=== PATIENT | female | born 1975 | race African-American/Black ===

== ENCOUNTER 2017-02-28 08:55 | Inpatient (IN) | payer MEDICARE, OTHER ==
[~2017-02-28] VITALS: Ht 160 cm; Wt 67.0 kg
[~2017-02-28 08:55] MED LIST: DILT60TA30 PO; ENAL10TA PO; HYDR-3343 PO; METO25TA35 PO
[2017-02-28] MEDS ORDERED: SODIUM CHLORIDE FLUSH 10ML SYR IVF ONE (09:00)
[2017-02-28] MEDS ORDERED: HYDROmorphone 2 MG/ML, 1ML IVPush ONE ×2 (09:00→12:00)
[2017-02-28] MEDS ORDERED: HYDROmorphone 1 MG/ML, 1ML ONE (09:12)
[2017-02-28] MEDS ORDERED: ONDANSETRON 2MG/ML, 2ML ONE (09:12)
[2017-02-28] MEDS ORDERED: ONDANSETRON 2MG/ML, 2ML IVPush ONE (09:30)
[2017-02-28 09:37] LABS: HEMATOCRIT 34.6 % (34.6-47.8); HEMOGLOBIN 11.9 g/dL (11.7-16.4); WHITE BLOOD COUNT 7.8 x10^3/uL (3.4-10)
[2017-02-28 09:47] LABS: ASPARTATE AMINO TRANSFERASE 12 U/L (15-37); BLOOD UREA NITROGEN 27 mg/dL (7-18)
[2017-02-28] MEDS ORDERED: SEVE800T8 PO (09:48)
[2017-02-28] MEDS ORDERED: DILT90CA PO (09:48)
[2017-02-28] MEDS ORDERED: TRAZ100T15 PO (09:49)
[2017-02-28] MEDS ORDERED: METO50TA82 PO (09:49)
[2017-02-28] MEDS ORDERED: DOXE10CA PO (09:49)
[2017-02-28 09:52] LABS: IS PT STATUS REG ER OR PRE ER? YES
[2017-02-28] MEDS ORDERED: HYDROmorphone 2 MG/ML, 1ML ONE (11:39)
[2017-02-28] MEDS: SODIUM CHLORIDE 0.9% 1,000 ML IV SCH ×2 (13:18→23:18)
[2017-02-28] MEDS ORDERED: hydrALAzine 20 MG/ML, 1ML IVPush PRN (13:30)
[2017-02-28] MEDS: morphine SULFATE 10 MG/ML, 1ML IVPush PRN ×2 (14:55→21:39)
[2017-02-28 15:07] VITALS: BP 105/70
[2017-02-28 15:50] VITALS: BP 100/65
[2017-02-28] MEDS: SEVELAMER 800MG TABLET PO SCH (16:00)
[2017-02-28 19:23] VITALS: BP 96/60
[2017-02-28] MEDS: DOXEPIN 10 MG CAPSULE PO SCH (21:00)
[2017-02-28] MEDS: METOPROLOL TARTRATE 50 MG TABLET PO SCH (21:00)
[2017-02-28] MEDS: TRAZODONE 100MG TABLET PO SCH (21:00)
[2017-03-01 01:57] VITALS: BP 127/80
[2017-03-01] MEDS: morphine SULFATE 10 MG/ML, 1ML IVPush PRN ×3 (03:10→13:54)
[2017-03-01 05:14] LABS: BLOOD UREA NITROGEN 37 mg/dL (7-18)
[2017-03-01 05:17] LABS: ASPARTATE AMINO TRANSFERASE 12 U/L (15-37)
[2017-03-01] MEDS: SEVELAMER 800MG TABLET PO SCH ×3 (07:00→16:00)
[2017-03-01 08:01] VITALS: BP 133/84
[2017-03-01] MEDS: ONDANSETRON 2MG/ML, 2ML IVPush PRN (08:30)
[2017-03-01] MEDS: METOPROLOL TARTRATE 50 MG TABLET PO SCH ×2 (13:00→20:47)
[2017-03-01 13:13] VITALS: BP 132/81
[2017-03-01] MEDS: DILTIAZEM 90 MG CAP.ER.12H PO SCH (13:54)
[2017-03-01] MEDS: SODIUM CHLORIDE 0.9% 1,000 ML IV SCH (13:56)
[2017-03-01] MEDS ORDERED: KETOROLAC 30 MG/1 ML IVPush PRN (16:30)
[2017-03-01] MEDS: PARICALCITOL 2 MCG/ML, 1ML IVPush SCH (16:55)
[2017-03-01] MEDS ORDERED: HYDROmorphone 1 MG/ML, 1ML IV PRN (17:00)
[2017-03-01] MEDS: HYDROmorphone 1 MG/ML, 1ML IV PRN ×2 (17:18→17:35)
[2017-03-01 19:56] VITALS: BP 139/88
[2017-03-01] MEDS: TRAZODONE 100MG TABLET PO SCH (20:47)
[2017-03-01] MEDS: DIPHENHYDRAMINE 25 MG CAPSULE PO PRN (20:48)
[2017-03-01] MEDS: DOXEPIN 10 MG CAPSULE PO SCH (20:48)
[2017-03-01] MEDS: MORPHINE SULFATE 4 MG/ML, 1ML IVPush PRN (20:59)
[2017-03-02] MEDS: SODIUM CHLORIDE 0.9% 1,000 ML IV SCH ×3 (01:18→22:01)
[2017-03-02 01:56] VITALS: BP 110/72
[2017-03-02] MEDS: MORPHINE SULFATE 4 MG/ML, 1ML IVPush PRN ×4 (02:11→22:01)
[2017-03-02] MEDS: SEVELAMER 800MG TABLET PO SCH ×3 (07:00→15:21)
[2017-03-02 08:00] VITALS: BP 126/82
[2017-03-02] MEDS: ONDANSETRON 2MG/ML, 2ML IVPush PRN (09:22)
[2017-03-02] MEDS: METOPROLOL TARTRATE 50 MG TABLET PO SCH ×2 (09:29→22:00)
[2017-03-02] MEDS: DILTIAZEM 90 MG CAP.ER.12H PO SCH (09:30)
[2017-03-02 14:41] VITALS: BP 129/85
[2017-03-02] MEDS: DIPHENHYDRAMINE 25 MG CAPSULE PO PRN (15:15)
[2017-03-02 21:57] VITALS: BP 152/88
[2017-03-02] MEDS: DOXEPIN 10 MG CAPSULE PO SCH (22:00)
[2017-03-02] MEDS: TRAZODONE 100MG TABLET PO SCH (22:00)
[2017-03-03 02:26] VITALS: BP 137/91
[2017-03-03] MEDS: MORPHINE SULFATE 4 MG/ML, 1ML IVPush PRN ×5 (02:29→20:05)
[2017-03-03] MEDS: ONDANSETRON 2MG/ML, 2ML IVPush PRN ×4 (06:20→20:47)
[2017-03-03 06:55] VITALS: BP 145/89
[2017-03-03] MEDS: SEVELAMER 800MG TABLET PO SCH ×3 (07:00→16:00)
[2017-03-03] MEDS: METOPROLOL TARTRATE 50 MG TABLET PO SCH (09:00)
[2017-03-03] MEDS: DILTIAZEM 90 MG CAP.ER.12H PO SCH (09:00)
[2017-03-03 09:47] LABS: HEMATOCRIT 30.9 % (34.6-47.8); HEMOGLOBIN 10.4 g/dL (11.7-16.4); WHITE BLOOD COUNT 6.4 x10^3/uL (3.4-10)
[2017-03-03 10:01] LABS: BLOOD UREA NITROGEN 28 mg/dL (7-18)
[2017-03-03 12:40] VITALS: BP 151/86
[2017-03-03] MEDS: hydrALAzine 20 MG/ML, 1ML IVPush SCH ×3 (12:51→23:18)
[2017-03-03] MEDS: METOPROLOL 1 MG/ML, 5ML IVPush SCH ×3 (12:52→23:18)
[2017-03-03 19:08] LABS: IS PT STATUS REG ER OR PRE ER? NO
[2017-03-03 19:42] VITALS: BP 165/103
[2017-03-03] MEDS: LORazepam 2 MG/ML, 1ML IVPush PRN (20:05)
[2017-03-03] MEDS: SODIUM CHLORIDE 0.9% 1,000 ML IV SCH (20:48)
[2017-03-03] MEDS: TRAZODONE 100MG TABLET PO SCH (21:00)
[2017-03-03] MEDS: DOXEPIN 10 MG CAPSULE PO SCH (21:00)
[2017-03-03 23:08] VITALS: BP 149/91
[2017-03-04] MEDS: HYDROmorphone 1 MG/ML, 1ML IV PRN (01:14)
[2017-03-04 01:17] VITALS: BP 173/99
[2017-03-04] MEDS: ONDANSETRON 2MG/ML, 2ML IVPush PRN ×3 (01:19→20:20)
[2017-03-04] MEDS: hydrALAzine 20 MG/ML, 1ML IVPush SCH ×4 (05:04→23:21)
[2017-03-04] MEDS: METOPROLOL 1 MG/ML, 5ML IVPush SCH ×3 (05:04→20:20)
[2017-03-04 05:33] LABS: BLOOD UREA NITROGEN 35 mg/dL (7-18)
[2017-03-04 06:32] VITALS: BP 142/74
[2017-03-04] MEDS: SEVELAMER 800MG TABLET PO SCH ×3 (07:00→15:14)
[2017-03-04] MEDS: LORazepam 2 MG/ML, 1ML IVPush PRN (08:39)
[2017-03-04] MEDS: SODIUM CHLORIDE 0.9% 1,000 ML IV SCH (13:21)
[2017-03-04 13:28] VITALS: BP 135/85
[2017-03-04] MEDS: PARICALCITOL 2 MCG/ML, 1ML IVPush SCH (15:00)
[2017-03-04] MEDS: MORPHINE SULFATE 4 MG/ML, 1ML IVPush PRN ×2 (15:23→20:44)
[2017-03-04 17:28] VITALS: BP 149/88
[2017-03-04 20:15] VITALS: BP 159/98
[2017-03-04] MEDS: TRAZODONE 100MG TABLET PO SCH (20:22)
[2017-03-04] MEDS: DOXEPIN 10 MG CAPSULE PO SCH (20:22)
[2017-03-04 23:18] VITALS: BP 144/84
[2017-03-05] MEDS: MORPHINE SULFATE 4 MG/ML, 1ML IVPush PRN ×3 (00:49→17:40)
[2017-03-05 00:51] VITALS: BP 129/80
[2017-03-05] MEDS: METOPROLOL 1 MG/ML, 5ML IVPush SCH ×5 (00:52→20:23)
[2017-03-05] MEDS: SODIUM CHLORIDE 0.9% 1,000 ML IV SCH ×2 (00:52→14:08)
[2017-03-05] MEDS: ONDANSETRON 2MG/ML, 2ML IVPush PRN ×3 (00:56→20:36)
[2017-03-05] MEDS: LORazepam 2 MG/ML, 1ML IVPush PRN ×3 (01:23→20:36)
[2017-03-05 05:27] VITALS: BP 157/93
[2017-03-05] MEDS: hydrALAzine 20 MG/ML, 1ML IVPush SCH ×4 (05:27→22:24)
[2017-03-05 06:25] VITALS: BP 151/85
[2017-03-05] MEDS: SEVELAMER 800MG TABLET PO SCH ×3 (07:00→16:00)
[2017-03-05 07:49] LABS: BLOOD UREA NITROGEN 22 mg/dL (7-18)
[2017-03-05] MEDS: PANCRELIPASE 24,000 CAPSULE.DR PO SCH ×3 (08:00→17:00)
[2017-03-05 12:37] VITALS: BP 158/100
[2017-03-05 20:06] LABS: BLOOD UREA NITROGEN 27 mg/dL (7-18)
[2017-03-05 20:10] VITALS: BP 165/92
[2017-03-05] MEDS: TRAZODONE 100MG TABLET PO SCH (20:24)
[2017-03-05] MEDS: DOXEPIN 10 MG CAPSULE PO SCH (20:24)
[2017-03-05 22:38] VITALS: BP 152/94
[2017-03-05] MEDS ORDERED: OMNIPAQUE 350 MG/ML, 100ML BOTTLE ONE (23:53)
[2017-03-06] MEDS: METOPROLOL 1 MG/ML, 5ML IVPush SCH ×4 (01:21→21:23)
[2017-03-06] MEDS: ONDANSETRON 2MG/ML, 2ML IVPush PRN ×3 (01:21→21:23)
[2017-03-06 01:30] VITALS: BP 177/107
[2017-03-06 02:00] VITALS: BP 138/80
[2017-03-06] MEDS ORDERED: hydrALAzine 20 MG/ML, 1ML IV ONE (03:00)
[2017-03-06] MEDS: SODIUM CHLORIDE 0.9% 1,000 ML IV SCH ×3 (03:41→23:21)
[2017-03-06] MEDS: hydrALAzine 20 MG/ML, 1ML IVPush SCH ×4 (04:56→23:24)
[2017-03-06 07:12] VITALS: BP 168/95
[2017-03-06] MEDS: SEVELAMER 800MG TABLET PO SCH ×3 (08:15→16:51)
[2017-03-06] MEDS: PANCRELIPASE 24,000 CAPSULE.DR PO SCH ×3 (08:15→17:58)
[2017-03-06] MEDS: MORPHINE SULFATE 4 MG/ML, 1ML IVPush PRN (08:24)
[2017-03-06 12:14] VITALS: BP 162/97
[2017-03-06] MEDS: ACETAMINOPHEN 325 MG TABLET PO PRN (12:45)
[2017-03-06] MEDS: PARICALCITOL 2 MCG/ML, 1ML IVPush SCH (16:51)
[2017-03-06 21:01] VITALS: BP 154/109
[2017-03-06] MEDS: DOXEPIN 10 MG CAPSULE PO SCH (21:22)
[2017-03-06] MEDS: TRAZODONE 100MG TABLET PO SCH (21:22)
[2017-03-06] MEDS: LORazepam 2 MG/ML, 1ML IVPush PRN (21:23)
[2017-03-06 23:20] VITALS: BP 155/96
[2017-03-07] MEDS: METOPROLOL 1 MG/ML, 5ML IVPush SCH ×3 (01:51→13:30)
[2017-03-07 01:52] VITALS: BP 141/86
[2017-03-07 05:19] VITALS: BP 148/88
[2017-03-07] MEDS: hydrALAzine 20 MG/ML, 1ML IVPush SCH ×2 (05:19→11:00)
[2017-03-07] MEDS: SEVELAMER 800MG TABLET PO SCH ×5 (05:48→16:00)
[2017-03-07] MEDS: ACETAMINOPHEN 325 MG TABLET PO PRN (05:48)
[2017-03-07 08:00] VITALS: BP 166/102
[2017-03-07] MEDS: PANCRELIPASE 24,000 CAPSULE.DR PO SCH ×3 (08:14→17:00)
[2017-03-07] MEDS: MORPHINE SULFATE 4 MG/ML, 1ML IVPush PRN ×2 (08:26→20:15)
[2017-03-07] MEDS: ONDANSETRON 2MG/ML, 2ML IVPush PRN ×2 (08:47→17:37)
[2017-03-07] MEDS: SODIUM CHLORIDE 0.9% 1,000 ML IV SCH (11:44)
[2017-03-07 15:33] VITALS: BP 149/90
[2017-03-07] MEDS: DOXEPIN 10 MG CAPSULE PO SCH (20:14)
[2017-03-07] MEDS: TRAZODONE 100MG TABLET PO SCH (20:14)
[2017-03-07] MEDS: METOPROLOL SUCCINATE 50 MG TAB.ER.24H PO SCH (20:15)
[2017-03-07 21:44] VITALS: BP 149/99
[2017-03-08 02:05] VITALS: BP 146/96
[2017-03-08] MEDS: SODIUM CHLORIDE 0.9% 1,000 ML IV SCH (03:29)
[2017-03-08] MEDS: LORazepam 2 MG/ML, 1ML IVPush PRN ×3 (05:25→23:13)
[2017-03-08] MEDS: ONDANSETRON 2MG/ML, 2ML IVPush PRN ×3 (05:25→23:13)
[2017-03-08] MEDS: MORPHINE SULFATE 4 MG/ML, 1ML IVPush PRN ×3 (05:32→23:13)
[2017-03-08] MEDS: SEVELAMER 800MG TABLET PO SCH ×3 (08:00→17:28)
[2017-03-08] MEDS: PANCRELIPASE 24,000 CAPSULE.DR PO SCH ×3 (08:00→17:27)
[2017-03-08 08:23] VITALS: BP 151/96
[2017-03-08] MEDS: DILTIAZEM 90 MG CAP.ER.12H PO SCH (09:00)
[2017-03-08 16:01] VITALS: BP 142/89
[2017-03-08] MEDS: PARICALCITOL 2 MCG/ML, 1ML IVPush SCH (17:28)
[2017-03-08 20:22] VITALS: BP 146/89
[2017-03-08] MEDS: TRAZODONE 100MG TABLET PO SCH (22:53)
[2017-03-08] MEDS: DOXEPIN 10 MG CAPSULE PO SCH (22:54)
[2017-03-08] MEDS: METOPROLOL SUCCINATE 50 MG TAB.ER.24H PO SCH (22:54)
[2017-03-09 01:33] VITALS: BP 145/89
[2017-03-09] MEDS ORDERED: ACETAMINOPHEN 325 MG TABLET PO PRN (02:00)
[2017-03-09] MEDS ORDERED: HYDROmorphone 1 MG/ML, 1ML IV PRN (02:00)
[2017-03-09] MEDS ORDERED: DIPHENHYDRAMINE 25 MG CAPSULE PO PRN (02:00)
[2017-03-09] MEDS ORDERED: ONDANSETRON 2MG/ML, 2ML IVPush PRN (02:00)
[2017-03-09 07:07] VITALS: BP 152/88
[2017-03-09] MEDS: PANCRELIPASE 24,000 CAPSULE.DR PO SCH (09:09)
[2017-03-09] MEDS: SEVELAMER 800MG TABLET PO SCH (09:09)
[2017-03-09] MEDS: DILTIAZEM 90 MG CAP.ER.12H PO SCH (09:09)
[2017-03-09] MEDS ORDERED: LIPA1CAP61 PO (11:09)
== END 2017-03-09 12:00 | disposition home or self-care (01) | DRG 438 ==
LOC: ED 09:25 → EDIP 10:37 → 4EST 11:59
PROVIDERS: ADMIT Internal Medicine; ATTEND Internal Medicine
PROC: 5A1D60Z (ICD-10-PCS; principal; 2017-03-04)
DX: K85.90 Acute pancreatitis without necrosis or infection, unspecified (principal); N18.6 End stage renal disease; I12.0 Hypertensive chronic kidney disease with stage 5 chronic kidney disease or end stage renal disease; E87.1 Hypo-osmolality and hyponatremia; E83.39 Other disorders of phosphorus metabolism; D63.1 Anemia in chronic kidney disease; E87.6 Hypokalemia; F12.90 Cannabis use, unspecified, uncomplicated; I70.1 Atherosclerosis of renal artery; M10.9 Gout, unspecified; N28.1 Cyst of kidney, acquired; T50.905A Adverse effect of unspecified drugs, medicaments and biological substances, initial encounter; Y92.89 Other specified places as the place of occurrence of the external cause; Z82.49 Family history of ischemic heart disease and other diseases of the circulatory system; Z86.73 Personal history of transient ischemic attack (TIA), and cerebral infarction without residual deficits; Z87.891 Personal history of nicotine dependence; Z99.2 Dependence on renal dialysis; Z91.19 Patient's noncompliance with other medical treatment and regimen
CPT/HCPCS: 36415; 71010; 74176; 74177; 76700; 80048; 80053; 80061; 82330; 83690; 83735; 84100; 84484; 85025; 86704; 86706; 87340; 93005; 96374; 96375; 96376; J1170; J2405; J2501; Q9967; J0360; J2060; J2270; J7030; Q0163

== ENCOUNTER 2017-07-19 07:57 | Emergency (ER) | payer MEDICARE, OTHER ==
[~2017-07-19] VITALS: Ht 162.6 cm; Wt 78.0 kg
[~2017-07-19 07:57] MED LIST changes: +DILT90CA PO; +DOXE10CA PO; +LIPA1CAP61 PO; +METO50TA82 PO; +SEVE800T8 PO; +TRAZ100T15 PO
[2017-07-19] MEDS ORDERED: METOCLOPRAMIDE 5 MG/ML, 2ML ONE (08:17)
[2017-07-19] MEDS ORDERED: MORPHINE SULFATE 4 MG/ML, 1ML ONE ×2 (08:17→09:20)
[2017-07-19] MEDS ORDERED: DIPHENHYDRAMINE 50 MG/ML, 1ML ONE (08:17)
[2017-07-19] MEDS: MORPHINE SULFATE 4 MG/ML, 1ML IVPush PRN ×2 (08:22→09:22)
[2017-07-19] MEDS ORDERED: METOCLOPRAMIDE 5 MG/ML, 2ML IVPush ONE (08:30)
[2017-07-19] MEDS ORDERED: SODIUM CHLORIDE FLUSH 10ML SYR IVF ONE (08:30)
[2017-07-19] MEDS ORDERED: DIPHENHYDRAMINE 50 MG/ML, 1ML IVPush ONE (08:30)
[2017-07-19] MEDS ORDERED: OMNIPAQUE 350 MG/ML, 100ML BOTTLE ONE (08:44)
[2017-07-19 08:52] LABS: BASOPHILS # (AUTO) 0.02 x10^3/uL (0-0.1); BASOPHILS % (AUTO) 0 % (0-1); EOSINOPHILS # (AUTO) 0.11 x10^3/uL (0-0.4); EOSINOPHILS % (AUTO) 2 % (1-7); LYMPHOCYTES # (AUTO) 0.64 x10^3/uL (1-3.4); LYMPHOCYTES % (AUTO) 10 % (22-44); MD NO; MEAN CORPUSCULAR HEMOGLOBIN 31.3 pg (27.0-34.8); MEAN CORPUSCULAR VOLUME 94.9 fL (80-100); MEAN PLATELET VOLUME 7.7 fL (7.4-10.4); MONOCYTES # (AUTO) 0.44 x10^3/uL (0.2-0.8); MONOCYTES % (AUTO) 7 % (2-9); NEUTROPHILS # (AUTO) 5.44 x10^3/uL (1.8-6.8); NEUTROPHILS % (AUTO) 82 % (42-75); PLATELET COUNT 193 x10^3/uL (130-400); RED BLOOD COUNT 4.08 x10^6/uL (3.82-5.3)
[2017-07-19 09:02] LABS: ALANINE AMINOTRANSFERASE 13 U/L (12-78); ALBUMIN 3.4 g/dL (3.4-5.0); ANION GAP 12 mmol/L (5-15); CALCIUM 9.1 mg/dL (8.5-10.1); CHLORIDE 97 mmol/L (98-107); CREATININE 7.86 mg/dL (0.55-1.02)
[2017-07-19 09:07] LABS: ALKALINE PHOSPHATASE 77 U/L (45-117); BILIRUBIN,TOTAL 0.6 mg/dL (0.2-1.0); TOTAL PROTEIN 7.5 g/dL (6.4-8.2)
[2017-07-19 09:30] LABS: MICROSCOPIC INDICATED
[2017-07-19 09:56] LABS: CULTURE INDICATED? NO
[2017-07-19 10:38] VITALS: BP 105/73
== END 2017-07-19 10:44 | disposition home or self-care (01) ==
LOC: ED 09:50
DX: R10.13 Epigastric pain (principal); R11.2 Nausea with vomiting, unspecified; I12.9 Hypertensive chronic kidney disease with stage 1 through stage 4 chronic kidney disease, or unspecified chronic kidney disease; N18.4 Chronic kidney disease, stage 4 (severe); Z99.2 Dependence on renal dialysis
CPT/HCPCS: 36415; 74177; 80053; 81001; 83690; 84703; 85025; 96374; 96375; 96376; 99285; J1200; J2765; Q9967

== ENCOUNTER 2017-08-28 08:07 | Inpatient (IN) | payer MEDICARE, OTHER ==
[~2017-08-28] VITALS: Ht 160 cm; Wt 83.5 kg
[2017-08-28] MEDS ORDERED: PROMETHAZINE 25 MG/ML, 1ML ONE (08:21)
[2017-08-28 08:30] LABS: BASOPHILS # (AUTO) 0.03 x10^3/uL (0-0.1); BASOPHILS % (AUTO) 1 % (0-1); EOSINOPHILS # (AUTO) 0.25 x10^3/uL (0-0.4); EOSINOPHILS % (AUTO) 4 % (1-7); LYMPHOCYTES # (AUTO) 1.04 x10^3/uL (1-3.4); LYMPHOCYTES % (AUTO) 18 % (22-44); MD NO; MEAN CORPUSCULAR HEMOGLOBIN 31.8 pg (27.0-34.8); MEAN CORPUSCULAR HGB CONC 33.8 g/dL (32.4-35.8); MEAN CORPUSCULAR VOLUME 94.2 fL (80-100); MEAN PLATELET VOLUME 7.9 fL (7.4-10.4); MONOCYTES # (AUTO) 0.43 x10^3/uL (0.2-0.8); MONOCYTES % (AUTO) 8 % (2-9); NEUTROPHILS # (AUTO) 3.88 x10^3/uL (1.8-6.8); NEUTROPHILS % (AUTO) 69 % (42-75); PLATELET COUNT 185 x10^3/uL (130-400); RED BLOOD COUNT 3.42 x10^6/uL (3.82-5.3); RED CELL DISTRIBUTION WIDTH 14.2 % (9.6-15.2)
[2017-08-28] MEDS ORDERED: PROMETHAZINE 25 MG/ML, 1ML IM ONE (08:30)
[2017-08-28 08:40] LABS: ALANINE AMINOTRANSFERASE 12 U/L (12-78); ALBUMIN 3.3 g/dL (3.4-5.0); ANION GAP 11 mmol/L (5-15); CALCIUM 8.6 mg/dL (8.5-10.1); CHLORIDE 102 mmol/L (98-107); CREATININE 8.72 mg/dL (0.55-1.02)
[2017-08-28 08:42] LABS: ALKALINE PHOSPHATASE 91 U/L (45-117); BILIRUBIN,TOTAL 0.4 mg/dL (0.2-1.0); TOTAL PROTEIN 7.4 g/dL (6.4-8.2)
[2017-08-28] MEDS: PLEASE ENTER HEIGHT AND WEIGHT MC SCH ×2 (08:49→11:22)
[2017-08-28] MEDS ORDERED: CINA60TA PO (09:25)
[2017-08-28] MEDS ORDERED: DIPHENHYDRAMINE 50 MG/ML, 1ML IVPush ONE (09:30)
[2017-08-28] MEDS ORDERED: PROCHLORPERAZINE 5 MG/ML, 2ML IVPush ONE (09:30)
[2017-08-28] MEDS ORDERED: PROCHLORPERAZINE 5 MG/ML, 2ML ONE (09:35)
[2017-08-28] MEDS ORDERED: DIPHENHYDRAMINE 50 MG/ML, 1ML ONE (09:36)
[2017-08-28 12:50] VITALS: BP 111/73
[2017-08-28] MEDS ORDERED: DOCUSATE 100 MG CAPSULE PO PRN (13:00)
[2017-08-28] MEDS ORDERED: hydrALAzine 20 MG/ML, 1ML IVPush PRN (13:00)
[2017-08-28] MEDS ORDERED: ENALAPRILAT 1.25 MG/ML, 2ML IVPush PRN (13:00)
[2017-08-28] MEDS ORDERED: BISACODYL 10 MG SUPP PR PRN (13:00)
[2017-08-28] MEDS ORDERED: ACETAMINOPHEN 325 MG TABLET PO PRN (13:00)
[2017-08-28] MEDS ORDERED: ONDANSETRON 2MG/ML, 2ML IVPush PRN (13:00)
[2017-08-28] MEDS: HEPARIN 5,000 UNITS/ML, 1ML SQ SCH ×2 (13:00→20:40)
[2017-08-28] MEDS ORDERED: POLYETHYLENE GLYCOL 17 GM PACKET PO PRN (13:00)
[2017-08-28 13:32] LABS: FREE T4 (FREE THYROXINE) 1.16 ng/dL (0.76-1.46); THYROID STIMULATING HORMONE 3.84 mIU/L (0.358-3.740)
[2017-08-28 13:55] LABS: HEMOGLOBIN A1C 4.5 % (4.2-6.3)
[2017-08-28] MEDS ORDERED: LORazepam 2 MG/ML, 1ML IVPush ONE (14:30)
[2017-08-28] MEDS ORDERED: LORazepam 2 MG/ML, 1ML ONE (14:34)
[2017-08-28 15:57] LABS: MICROSCOPIC AUTO
[2017-08-28] MEDS: SEVELAMER CARBONATE 800MG TAB PO SCH (16:00)
[2017-08-28 16:15] LABS: CULTURE INDICATED? NO
[2017-08-28 21:00] VITALS: BP 122/76
[2017-08-28] MEDS ORDERED: CINACALCET 30 MG TABLET PO SCH (21:00)
[2017-08-28] MEDS ORDERED: TRAZODONE 100MG TABLET PO SCH (21:00)
[2017-08-28] MEDS ORDERED: DOXEPIN 10 MG CAPSULE PO SCH (21:00)
[2017-08-29 01:39] VITALS: BP 117/71
[2017-08-29] MEDS: HEPARIN 5,000 UNITS/ML, 1ML SQ SCH (05:00)
[2017-08-29 05:01] LABS: BASOPHILS # (AUTO) 0.05 x10^3/uL (0-0.1); BASOPHILS % (AUTO) 1 % (0-1); EOSINOPHILS # (AUTO) 0.35 x10^3/uL (0-0.4); EOSINOPHILS % (AUTO) 6 % (1-7); LYMPHOCYTES # (AUTO) 1.13 x10^3/uL (1-3.4); LYMPHOCYTES % (AUTO) 20 % (22-44); MD NO; MEAN CORPUSCULAR HEMOGLOBIN 31.7 pg (27.0-34.8); MEAN CORPUSCULAR HGB CONC 33.6 g/dL (32.4-35.8); MEAN CORPUSCULAR VOLUME 94.6 fL (80-100); MEAN PLATELET VOLUME 8.4 fL (7.4-10.4); MONOCYTES # (AUTO) 0.38 x10^3/uL (0.2-0.8); MONOCYTES % (AUTO) 7 % (2-9); NEUTROPHILS # (AUTO) 3.86 x10^3/uL (1.8-6.8); NEUTROPHILS % (AUTO) 67 % (42-75); PLATELET COUNT 180 x10^3/uL (130-400); RED BLOOD COUNT 3.53 x10^6/uL (3.82-5.3); RED CELL DISTRIBUTION WIDTH 14.2 % (9.6-15.2)
[2017-08-29 05:05] LABS: CHLORIDE 105 mmol/L (98-107)
[2017-08-29 05:15] LABS: ALANINE AMINOTRANSFERASE 13 U/L (12-78); ALBUMIN 3.2 g/dL (3.4-5.0); ALKALINE PHOSPHATASE 65 U/L (45-117); ANION GAP 9 mmol/L (5-15); BILIRUBIN,TOTAL 0.7 mg/dL (0.2-1.0); CALCIUM 9.3 mg/dL (8.5-10.1); CREATININE 9.91 mg/dL (0.55-1.02); TOTAL PROTEIN 7.2 g/dL (6.4-8.2)
[2017-08-29] MEDS: SEVELAMER CARBONATE 800MG TAB PO SCH ×2 (07:00→11:00)
[2017-08-29 08:07] VITALS: BP 104/63
[2017-08-29] MEDS ORDERED: DILTIAZEM 90 MG CAP.ER.12H PO SCH (09:00)
== END 2017-08-29 12:30 | disposition home or self-care (01) | DRG 438 ==
LOC: ED 09:15 → EDIP 09:22 → 4EST 10:16 → DCLOUNGE 08-29 12:20
PROVIDERS: ADMIT Internal Medicine; ATTEND Internal Medicine
DX: K85.90 Acute pancreatitis without necrosis or infection, unspecified (principal); N18.6 End stage renal disease; I12.0 Hypertensive chronic kidney disease with stage 5 chronic kidney disease or end stage renal disease; I95.9 Hypotension, unspecified; D63.8 Anemia in other chronic diseases classified elsewhere; F12.90 Cannabis use, unspecified, uncomplicated; F10.10 Alcohol abuse, uncomplicated; K86.1 Other chronic pancreatitis; Z99.2 Dependence on renal dialysis; Z79.899 Other long term (current) drug therapy; Z82.49 Family history of ischemic heart disease and other diseases of the circulatory system; Z86.73 Personal history of transient ischemic attack (TIA), and cerebral infarction without residual deficits; Z91.14 Patient's other noncompliance with medication regimen; Z88.8 Allergy status to other drugs, medicaments and biological substances; Z88.0 Allergy status to penicillin
CPT/HCPCS: 36415; 74181; 80053; 81001; 83036; 83690; 83735; 84439; 84443; 85025; 93005; 96372; 96374; 96375; J2550; J0780; J1200; J2060

== ENCOUNTER 2018-01-25 23:52 | Emergency (ER) | payer OTHER, MEDICARE ==
[~2018-01-25] VITALS: Ht 160 cm; Wt 72.0 kg
[~2018-01-25 23:52] MED LIST changes: +CINA60TA PO; +TRAZ-137 PO; -TRAZ100T15 PO
[2018-01-26] MEDS ORDERED: DIPHENHYDRAMINE 50 MG/ML, 1ML ONE (00:26)
[2018-01-26] MEDS ORDERED: METOCLOPRAMIDE 5 MG/ML, 2ML ONE (00:26)
[2018-01-26] MEDS ORDERED: DIPHENHYDRAMINE 50 MG/ML, 1ML IVPush ONE (00:30)
[2018-01-26] MEDS ORDERED: SODIUM CHLORIDE FLUSH 10ML SYR IVF ONE (00:30)
[2018-01-26] MEDS ORDERED: METOCLOPRAMIDE 5 MG/ML, 2ML IVPush ONE (00:30)
[2018-01-26] MEDS ORDERED: SODIUM CHLORIDE 0.9% 1,000ML IVBOLUS ONE (00:30)
[2018-01-26 00:38] LABS: MEAN CORPUSCULAR HEMOGLOBIN 31.2 pg (27.0-34.8); MEAN CORPUSCULAR HGB CONC 33.5 g/dL (32.4-35.8); MEAN CORPUSCULAR VOLUME 93.1 fL (80-100); MEAN PLATELET VOLUME 8.1 fL (7.4-10.4); PLATELET COUNT 203 x10^3/uL (130-400); RED BLOOD COUNT 3.88 x10^6/uL (3.82-5.3); RED CELL DISTRIBUTION WIDTH 13.8 % (9.6-15.2)
[2018-01-26 00:43] LABS: ALBUMIN 3.8 g/dL (3.4-5.0); ANION GAP 9 mmol/L (5-15); CALCIUM 10.2 mg/dL (8.5-10.1); CHLORIDE 101 mmol/L (98-107); CREATININE 9.81 mg/dL (0.55-1.02)
[2018-01-26 00:54] LABS: MD YES
[2018-01-26 01:01] LABS: <RBC MORPHOLOGY> NORMAL; BASOS#(MANUAL) 0.06 x10^3/uL (0-0.1); BASOS% (MANUAL) 1 % (0-1); EOS% (MANUAL) 5 % (1-7); LYMPH#(MANUAL) 1.92 x10^3/uL (1-3.4); LYMPHS% (MANUAL) 32 % (22-44); MONOS% (MANUAL) 5 % (2-9); SEG#(MANUAL) 3.42 x10^3/uL (1.8-6.8); SEGS% (MANUAL) 57 % (42-75)
[2018-01-26 01:02] LABS: <PLATELET ESTIMATE> ADEQUATE; <PLT MORPHOLOGY> NORMAL PLT MORPH; ALBUMIN 3.7 g/dL (3.4-5.0); BILIRUBIN, DIRECT 0.1 mg/dL (0.1-0.2)
[2018-01-26 01:05] LABS: BILIRUBIN,INDIRECT 0.4 mg/dL (0.0-2.0); BILIRUBIN,TOTAL 0.5 mg/dL (0.2-1.0)
[2018-01-26 02:03] VITALS: BP 153/92
== END 2018-01-26 02:05 | disposition home or self-care (01) ==
LOC: ED 23:59
DX: R42 Dizziness and giddiness (principal); R51 Headache; R11.0 Nausea; N18.6 End stage renal disease; I12.0 Hypertensive chronic kidney disease with stage 5 chronic kidney disease or end stage renal disease; H53.149 Visual discomfort, unspecified; R10.9 Unspecified abdominal pain; M54.9 Dorsalgia, unspecified; G89.29 Other chronic pain; Z99.2 Dependence on renal dialysis
CPT/HCPCS: 36415; 70450; 80048; 80076; 82040; 83690; 85025; 96361; 96374; 96375; 99285; J1200; J2765; J7030

== ENCOUNTER → 2018-03-31 | Outpatient (CLI) | payer MEDICARE, OTHER ==
[~2018-03-31] MED LIST changes: +HYDR-3237 PO; +HYDR-3342 PO; +TRAZ150T62 PO
[2018-03-31 11:42] LABS: BASOPHILS # (AUTO) 0.01 x10^3/uL (0-0.1); BASOPHILS % (AUTO) 0 % (0-1); EOSINOPHILS # (AUTO) 0.22 x10^3/uL (0-0.4); EOSINOPHILS % (AUTO) 4 % (1-7); LYMPHOCYTES # (AUTO) 1.35 x10^3/uL (1-3.4); LYMPHOCYTES % (AUTO) 23 % (22-44); MD NO; MEAN CORPUSCULAR HEMOGLOBIN 30.1 pg (27.0-34.8); MEAN CORPUSCULAR HGB CONC 33.8 g/dL (32.4-35.8); MEAN CORPUSCULAR VOLUME 89.2 fL (80-100); MEAN PLATELET VOLUME 8.6 fL (7.4-10.4); MONOCYTES # (AUTO) 0.33 x10^3/uL (0.2-0.8); MONOCYTES % (AUTO) 6 % (2-9); NEUTROPHILS # (AUTO) 4.03 x10^3/uL (1.8-6.8); NEUTROPHILS % (AUTO) 68 % (42-75); PLATELET COUNT 210 x10^3/uL (130-400); RED BLOOD COUNT 4.39 x10^6/uL (3.82-5.3)
[2018-03-31 11:50] LABS: ALBUMIN 3.8 g/dL (3.4-5.0); ANION GAP 9 mmol/L (5-15); CALCIUM 10.1 mg/dL (8.5-10.1); CHLORIDE 93 mmol/L (98-107)
[2018-03-31 12:03] LABS: ALANINE AMINOTRANSFERASE 16 U/L (12-78); ALKALINE PHOSPHATASE 102 U/L (45-117); BILIRUBIN,TOTAL 0.3 mg/dL (0.2-1.0); CREATININE 7.32 mg/dL (0.55-1.02); TOTAL PROTEIN 8.6 g/dL (6.4-8.2)
[2018-03-31 12:05] LABS: INTERNATIONAL NORMALIZED RATIO 0.97 (0.93-1.1)
== END | disposition home or self-care (01) ==
LOC: STAR 10:11
PROVIDERS: ATTEND Neurological Surgery
DX: Z01.818 Encounter for other preprocedural examination (principal); M43.16 Spondylolisthesis, lumbar region; M54.16 Radiculopathy, lumbar region
CPT/HCPCS: 36415; 80053; 85025; 85610; 85730; 93005

== ENCOUNTER 2018-04-08 05:24 | Inpatient (IN) | payer MEDICARE, OTHER ==
[2018-03-31 10:56] VITALS: BP 126/85
[~2018-04-08] VITALS: Ht 161.3 cm; Wt 74.8 kg
[2018-04-08] MEDS ORDERED: SODIUM CHLORIDE 0.9% 1,000 ML IV SCH (06:03)
[2018-04-08] MEDS ORDERED: LIDOCAINE 1%-EPI 1:100K, 30ML ONE (06:05)
[2018-04-08] MEDS ORDERED: THROMBIN 20,000 UNIT VIAL TP ONE (06:05)
[2018-04-08] MEDS ORDERED: BACITRACIN 50,000 UNIT ONE (06:05)
[2018-04-08] MEDS ORDERED: BUPIVACAINE/PF-EPI 0.5% 1:200K ONE (06:05)
[2018-04-08] MEDS ORDERED: HEPARIN 1,000 UNITS/ML, 30ML ONE (06:07)
[2018-04-08 06:19] LABS: MICROSCOPIC AUTO
[2018-04-08 06:21] LABS: CULTURE INDICATED? YES
[2018-04-08] MEDS ORDERED: MIDAZOLAM 1 MG/ML, 2ML ONE (06:39)
[2018-04-08] MEDS ORDERED: FENTANYL PF 250 MCG/5ML ONE (06:39)
[2018-04-08] MEDS ORDERED: ACETAMINOPHEN 500 MG TABLET PO ONE (07:00)
[2018-04-08] MEDS ORDERED: SCOPOLAMINE PATCH, 1.5MG PATCH.TD72 TD ONE (07:00)
[2018-04-08] MEDS ORDERED: OXYcodone IR 5MG TABLET PO ONE (07:00)
[2018-04-08 07:01] LABS: ANION GAP 11 mmol/L (5-15); CHLORIDE 100 mmol/L (98-107); CREATININE 8.71 mg/dL (0.55-1.02)
[2018-04-08 07:10] LABS: HCG UR SG 1.017 (1.003-1.030)
[2018-04-08] MEDS ORDERED: SUCCINYLCHOLINE 20 MG/ML, 10ML ONE (07:16)
[2018-04-08] MEDS ORDERED: DEXAMETHASONE 4 MG/ML, 1ML ONE (07:16)
[2018-04-08] MEDS ORDERED: CEFAZOLIN 1,000 MG ONE (07:16)
[2018-04-08] MEDS ORDERED: ROCURONIUM 10 MG/ML,10ML ONE (07:16)
[2018-04-08] MEDS ORDERED: ONDANSETRON 2MG/ML, 2ML ONE (07:16)
[2018-04-08] MEDS ORDERED: PROPOFOL 10 MG/ML, 20ML ONE (07:16)
[2018-04-08] MEDS ORDERED: OXYcodone 5 MG/5 ML ORAL.SOL UDC PO PRN (08:30)
[2018-04-08] MEDS ORDERED: FENTANYL PF 100 MCG/2ML IV PRN (08:30)
[2018-04-08] MEDS ORDERED: PROMETHAZINE 25 MG/ML, 1ML IV PRN (08:30)
[2018-04-08] MEDS ORDERED: ALBUTEROL SULFATE 2.5 MG/3 ML NPPB PRN (08:30)
[2018-04-08] MEDS ORDERED: ONDANSETRON 2MG/ML, 2ML IVPush PRN (08:30)
[2018-04-08] MEDS ORDERED: LABETALOL 5MG/ML, 20ML IV PRN ×2 (08:30→13:30)
[2018-04-08] MEDS ORDERED: MEPERIDINE/PF 25MG/0.5ML IVPush PRN (08:30)
[2018-04-08] MEDS ORDERED: hydrALAzine 20 MG/ML, 1ML IV PRN (08:30)
[2018-04-08] MEDS ORDERED: KETOROLAC 30 MG/1 ML IV PRN (08:30)
[2018-04-08] MEDS ORDERED: HYDROmorphone 1 MG/ML, 1ML IV PRN (08:30)
[2018-04-08] MEDS ORDERED: VANCOMYCIN 1,000 MG ONE (10:20)
[2018-04-08] MEDS ORDERED: FENTANYL PF 100 MCG/2ML ONE (10:29)
[2018-04-08] MEDS ORDERED: OXYcodone 5 MG/5 ML ORAL.SOL UDC ONE (10:30)
[2018-04-08] MEDS ORDERED: HYDROmorphone 2 MG/ML, 1ML ONE (10:30)
[2018-04-08] MEDS ORDERED: METHOCARBAMOL 750 MG in DEXTROSE 5% 100 ML IV ONE (11:30)
[2018-04-08] MEDS ORDERED: OXYcodone/APAP 10/325MG TABLET PO PRN (13:30)
[2018-04-08] MEDS ORDERED: ONDANSETRON 2MG/ML, 2ML IV PRN (13:30)
[2018-04-08] MEDS ORDERED: TRAZODONE 50MG TABLET PO PRN (13:30)
[2018-04-08] MEDS ORDERED: DIPHENHYDRAMINE 50 MG/ML, 1ML IVPush PRN (13:30)
[2018-04-08] MEDS ORDERED: DIPHENHYDRAMINE 25 MG CAPSULE PO PRN (13:30)
[2018-04-08] MEDS ORDERED: morphine SULFATE 10 MG/ML, 1ML IV PRN (13:30)
[2018-04-08] MEDS ORDERED: BISACODYL 10 MG SUPP PR PRN (13:30)
[2018-04-08] MEDS: HYDROcodone/APAP 10/325 MG TABLET PO PRN ×2 (14:40→19:25)
[2018-04-08] MEDS: CEFAZOLIN PMX 1GM/50ML 50 ML IVPB SCH ×2 (15:30→21:24)
[2018-04-08] MEDS: SEVELAMER CARBONATE 800MG TAB PO SCH (16:00)
[2018-04-08 19:20] LABS: ANION GAP 8 mmol/L (5-15); CHLORIDE 92 mmol/L (98-107); CREATININE 4.44 mg/dL (0.55-1.02)
[2018-04-08 19:47] VITALS: BP 115/80
[2018-04-08] MEDS: SODIUM CHLORIDE 0.9% 1,000 ML IV SCH (21:24)
[2018-04-08] MEDS: FAMOTIDINE 20 MG TABLET PO SCH (21:24)
[2018-04-08] MEDS: DOXEPIN 10 MG CAPSULE PO SCH (21:24)
[2018-04-08] MEDS: METOPROLOL TARTRATE 50 MG TABLET PO SCH (21:25)
[2018-04-08] MEDS: METHOCARBAMOL 750 MG in DEXTROSE 5% 100 ML IV SCH (22:15)
[2018-04-08 23:30] VITALS: BP 116/76
[2018-04-09 02:52] VITALS: BP 121/70
[2018-04-09] MEDS: HYDROcodone/APAP 10/325 MG TABLET PO PRN ×4 (03:56→18:48)
[2018-04-09] MEDS: CEFAZOLIN PMX 1GM/50ML 50 ML IVPB SCH (05:20)
[2018-04-09 05:29] LABS: BASOPHILS # (AUTO) 0.02 x10^3/uL (0-0.1); BASOPHILS % (AUTO) 0 % (0-1); EOSINOPHILS # (AUTO) 0.09 x10^3/uL (0-0.4); EOSINOPHILS % (AUTO) 1 % (1-7); LYMPHOCYTES # (AUTO) 0.72 x10^3/uL (1-3.4); LYMPHOCYTES % (AUTO) 10 % (22-44); MD NO; MEAN CORPUSCULAR HEMOGLOBIN 30.2 pg (27.0-34.8); MEAN CORPUSCULAR HGB CONC 33.7 g/dL (32.4-35.8); MEAN CORPUSCULAR VOLUME 89.8 fL (80-100); MEAN PLATELET VOLUME 8.8 fL (7.4-10.4); MONOCYTES # (AUTO) 0.57 x10^3/uL (0.2-0.8); MONOCYTES % (AUTO) 8 % (2-9); NEUTROPHILS % (AUTO) 81 % (42-75); PLATELET COUNT 122 x10^3/uL (130-400); RED BLOOD COUNT 3.57 x10^6/uL (3.82-5.3); RED CELL DISTRIBUTION WIDTH 14.4 % (9.6-15.2)
[2018-04-09 05:39] LABS: ANION GAP 10 mmol/L (5-15); CALCIUM 9.9 mg/dL (8.5-10.1); CHLORIDE 94 mmol/L (98-107)
[2018-04-09 05:40] LABS: CREATININE 5.55 mg/dL (0.55-1.02)
[2018-04-09 06:26] VITALS: BP 118/79
[2018-04-09] MEDS: CEPHALEXIN 500 MG CAPSULE PO SCH ×4 (06:38→20:06)
[2018-04-09] MEDS: METHOCARBAMOL 750 MG in DEXTROSE 5% 100 ML IV SCH (06:38)
[2018-04-09] MEDS: METOPROLOL TARTRATE 50 MG TABLET PO SCH ×2 (06:39→18:45)
[2018-04-09 07:17] VITALS: BP 125/81
[2018-04-09] MEDS: SENNA/DOCUSATE TABLET PO SCH (08:08)
[2018-04-09] MEDS: FAMOTIDINE 20 MG TABLET PO SCH (08:08)
[2018-04-09] MEDS: SEVELAMER CARBONATE 800MG TAB PO SCH ×3 (08:08→16:00)
[2018-04-09] MEDS ORDERED: METHOCARBAMOL 750 MG TABLET PO PRN (11:00)
[2018-04-09 13:36] VITALS: BP 117/64
[2018-04-09] MEDS: SODIUM CHLORIDE 0.9% 1,000 ML IV SCH (17:23)
[2018-04-09 18:46] VITALS: BP 122/78
[2018-04-09] MEDS: DOXEPIN 10 MG CAPSULE PO SCH (20:06)
[2018-04-10] MEDS: HYDROcodone/APAP 10/325 MG TABLET PO PRN ×3 (00:31→20:26)
[2018-04-10 00:40] VITALS: BP 123/75
[2018-04-10 05:09] LABS: BASOPHILS # (AUTO) 0.01 x10^3/uL (0-0.1); BASOPHILS % (AUTO) 0 % (0-1); EOSINOPHILS # (AUTO) 0.15 x10^3/uL (0-0.4); EOSINOPHILS % (AUTO) 2 % (1-7); LYMPHOCYTES % (AUTO) 11 % (22-44); MD NO; MEAN CORPUSCULAR HEMOGLOBIN 30.1 pg (27.0-34.8); MEAN CORPUSCULAR HGB CONC 33.9 g/dL (32.4-35.8); MEAN CORPUSCULAR VOLUME 88.9 fL (80-100); MEAN PLATELET VOLUME 8.6 fL (7.4-10.4); MONOCYTES # (AUTO) 0.59 x10^3/uL (0.2-0.8); MONOCYTES % (AUTO) 7 % (2-9); NEUTROPHILS # (AUTO) 6.77 x10^3/uL (1.8-6.8); NEUTROPHILS % (AUTO) 80 % (42-75); PLATELET COUNT 135 x10^3/uL (130-400); RED BLOOD COUNT 3.78 x10^6/uL (3.82-5.3); RED CELL DISTRIBUTION WIDTH 13.7 % (9.6-15.2)
[2018-04-10 05:18] LABS: ANION GAP 12 mmol/L (5-15); CALCIUM 10.1 mg/dL (8.5-10.1); CHLORIDE 94 mmol/L (98-107); CREATININE 7.56 mg/dL (0.55-1.02)
[2018-04-10] MEDS: CEPHALEXIN 500 MG CAPSULE PO SCH ×4 (06:32→20:26)
[2018-04-10] MEDS: METOPROLOL TARTRATE 50 MG TABLET PO SCH ×2 (06:32→18:16)
[2018-04-10] MEDS: SEVELAMER CARBONATE 800MG TAB PO SCH ×3 (07:45→17:01)
[2018-04-10] MEDS: FAMOTIDINE 20 MG TABLET PO SCH (12:07)
[2018-04-10] MEDS: SENNA/DOCUSATE TABLET PO SCH (12:07)
[2018-04-10 12:11] VITALS: BP 117/73
[2018-04-10 13:18] LABS: BASOPHILS # (AUTO) 0.02 x10^3/uL (0-0.1); BASOPHILS % (AUTO) 0 % (0-1); EOSINOPHILS # (AUTO) 0.09 x10^3/uL (0-0.4); EOSINOPHILS % (AUTO) 1 % (1-7); LYMPHOCYTES # (AUTO) 0.57 x10^3/uL (1-3.4); LYMPHOCYTES % (AUTO) 7 % (22-44); MD NO; MEAN CORPUSCULAR HEMOGLOBIN 29.8 pg (27.0-34.8); MEAN CORPUSCULAR HGB CONC 33.4 g/dL (32.4-35.8); MEAN CORPUSCULAR VOLUME 89.4 fL (80-100); MEAN PLATELET VOLUME 9.5 fL (7.4-10.4); MONOCYTES # (AUTO) 0.52 x10^3/uL (0.2-0.8); MONOCYTES % (AUTO) 6 % (2-9); NEUTROPHILS # (AUTO) 7.14 x10^3/uL (1.8-6.8); NEUTROPHILS % (AUTO) 86 % (42-75); PLATELET COUNT 125 x10^3/uL (130-400); RED BLOOD COUNT 3.84 x10^6/uL (3.82-5.3); RED CELL DISTRIBUTION WIDTH 13.8 % (9.6-15.2)
[2018-04-10] MEDS: SODIUM CHLORIDE 0.9% 1,000 ML IV SCH (13:23)
[2018-04-10 13:29] LABS: ANION GAP 10 mmol/L (5-15); CALCIUM 9.5 mg/dL (8.5-10.1); CHLORIDE 97 mmol/L (98-107)
[2018-04-10 13:30] LABS: CREATININE 3.73 mg/dL (0.55-1.02)
[2018-04-10 18:18] VITALS: BP 129/74
[2018-04-10 19:00] VITALS: BP 144/71
[2018-04-10] MEDS: DOXEPIN 10 MG CAPSULE PO SCH (20:26)
[2018-04-11 01:35] VITALS: BP 105/68
[2018-04-11] MEDS: METOPROLOL TARTRATE 50 MG TABLET PO SCH ×2 (06:36→18:03)
[2018-04-11] MEDS: CEPHALEXIN 500 MG CAPSULE PO SCH ×3 (06:36→16:44)
[2018-04-11 08:01] VITALS: BP 130/85
[2018-04-11] MEDS: SENNA/DOCUSATE TABLET PO SCH (08:35)
[2018-04-11] MEDS: SEVELAMER CARBONATE 800MG TAB PO SCH ×3 (08:35→16:45)
[2018-04-11] MEDS: FAMOTIDINE 20 MG TABLET PO SCH (08:35)
[2018-04-11 13:10] VITALS: BP 115/73
[2018-04-11] MEDS ORDERED: SODIUM CHLORIDE 0.9% 1,000 ML IV SCH (13:30)
[2018-04-11] MEDS: HYDROcodone/APAP 10/325 MG TABLET PO PRN ×2 (13:57→18:03)
[2018-04-11] MEDS ORDERED: METH750T2 PO (16:56)
[2018-04-11] MEDS ORDERED: OXYC-302 PO (16:56)
[2018-04-11] MEDS ORDERED: CEPH-368 PO (16:56)
[2018-04-11] MEDS ORDERED: DIPH25CA61 PO (16:57)
[2018-04-11] MEDS ORDERED: SENN1TAB8 PO (16:57)
[2018-04-11] MEDS ORDERED: HYDR-3342 PO (16:58)
[2018-04-11 17:45] VITALS: BP 119/73
== END 2018-04-11 18:07 | DRG 453 ==
LOC: ORIP 05:24 → 4NOR 12:36
PROVIDERS: ADMIT Neurological Surgery; ATTEND Neurological Surgery
PROC: 0SG3071 Fusion of Lumbosacral Joint with Autologous Tissue Substitute, Posterior Approach, Posterior Column, Open Approach (ICD-10-PCS; 2018-04-08)
PROC: 0ST40ZZ Resection of Lumbosacral Disc, Open Approach (ICD-10-PCS; 2018-04-08)
PROC: 4A11X4G Monitoring of Peripheral Nervous Electrical Activity, Intraoperative, External Approach (ICD-10-PCS; 2018-04-08)
PROC: 5A1D70Z Performance of Urinary Filtration, Intermittent, Less than 6 Hours Per Day (ICD-10-PCS; 2018-04-08)
PROC: 0SG30A0 Fusion of Lumbosacral Joint with Interbody Fusion Device, Anterior Approach, Anterior Column, Open Approach (ICD-10-PCS; principal; 2018-04-08 07:00)
PROC: 5A1D70Z Performance of Urinary Filtration, Intermittent, Less than 6 Hours Per Day (ICD-10-PCS; 2018-04-10)
DX: M48.061 Spinal stenosis, lumbar region without neurogenic claudication (principal); N18.6 End stage renal disease; M48.56XA Collapsed vertebra, not elsewhere classified, lumbar region, initial encounter for fracture; I12.0 Hypertensive chronic kidney disease with stage 5 chronic kidney disease or end stage renal disease; M51.37 Other intervertebral disc degeneration, lumbosacral region; M43.17 Spondylolisthesis, lumbosacral region; F41.9 Anxiety disorder, unspecified; M53.2X7 Spinal instabilities, lumbosacral region; F32.9 Major depressive disorder, single episode, unspecified; G89.4 Chronic pain syndrome; D63.1 Anemia in chronic kidney disease; E78.5 Hyperlipidemia, unspecified; I25.10 Atherosclerotic heart disease of native coronary artery without angina pectoris; M10.9 Gout, unspecified; N25.0 Renal osteodystrophy; Z99.2 Dependence on renal dialysis; Z86.73 Personal history of transient ischemic attack (TIA), and cerebral infarction without residual deficits; M54.16 Radiculopathy, lumbar region
CPT/HCPCS: 36415; 72100; 74018; 80048; 81001; 81025; 85025; 86705; 86706; 87086; 87340; C1713; C1767; G0378; J0690; J1100; J1170; J1644; J2250; J2405; J2704; J3010; J3370; J3490; C1762; J0330; J2270; J2800; J7030

== ENCOUNTER 2018-09-28 12:31 | Inpatient (IN) | payer MEDICARE, OTHER, MEDICAID ==
[~2018-09-28] VITALS: Ht 162.6 cm; Wt 68.3 kg
[~2018-09-28 12:31] MED LIST changes: +CEPH-368 PO; +DIPH25CA61 PO; +METH750T2 PO; +OXYC-302 PO; +SENN-177 PO
[2018-09-28] MEDS ORDERED: ONDANSETRON 2MG/ML, 2ML IVPush ONE (14:00)
[2018-09-28] MEDS ORDERED: SODIUM CHLORIDE FLUSH 10ML SYR IVF ONE (14:00)
[2018-09-28] MEDS ORDERED: MORPHINE SULFATE 4 MG/ML, 1ML IVPush PRN (14:00)
[2018-09-28 14:12] LABS: BASOPHILS % (AUTO) 0 % (0-1); EOSINOPHILS # (AUTO) 0.02 x10^3/uL (0-0.4); EOSINOPHILS % (AUTO) 0 % (1-7); LYMPHOCYTES # (AUTO) 0.18 x10^3/uL (1-3.4); LYMPHOCYTES % (AUTO) 2 % (22-44); MD NO; MEAN CORPUSCULAR HEMOGLOBIN 31.8 pg (27.0-34.8); MEAN CORPUSCULAR HGB CONC 33.8 g/dL (32.4-35.8); MEAN CORPUSCULAR VOLUME 94.3 fL (80-100); MEAN PLATELET VOLUME 7.8 fL (7.4-10.4); MONOCYTES # (AUTO) 0.23 x10^3/uL (0.2-0.8); MONOCYTES % (AUTO) 3 % (2-9); NEUTROPHILS % (AUTO) 94 % (42-75); PLATELET COUNT 167 x10^3/uL (130-400); RED BLOOD COUNT 3.28 x10^6/uL (3.82-5.3); RED CELL DISTRIBUTION WIDTH 13.9 % (9.6-15.2)
[2018-09-28 14:22] LABS: ALBUMIN 3.2 g/dL (3.4-5.0); ANION GAP 12 mmol/L (5-15); CALCIUM 8.4 mg/dL (8.5-10.1); CHLORIDE 96 mmol/L (98-107); CREATININE 8.24 mg/dL (0.55-1.02)
--- NOTE | 2018-09-28 14:25 | NUR ---
pt to rad via tracie
[2018-09-28] MEDS ORDERED: OMNIPAQUE 350 MG/ML, 75ML BOTTLE ONE (14:38)
[2018-09-28] MEDS ORDERED: ONDANSETRON 2MG/ML, 2ML ONE (14:45)
[2018-09-28] MEDS ORDERED: MORPHINE SULFATE 4 MG/ML, 1ML ONE ×2 (14:45→16:02)
[2018-09-28] MEDS ORDERED: ACETAMINOPHEN 325 MG TABLET ONE (14:45)
[2018-09-28] MEDS: MORPHINE SULFATE 4 MG/ML, 1ML IVPush PRN ×2 (14:47→16:04)
[2018-09-28] MEDS: ACETAMINOPHEN 325 MG TABLET PO ONE ×2 (14:47→15:24)
[2018-09-28] MEDS ORDERED: CEFTRIAXONE PMX 1GM/50ML 50 ML IV ONE (15:00)
[2018-09-28] MEDS ORDERED: CEFTRIAXONE PMX 1GM/50ML 50 ML ONE (15:25)
[2018-09-28] MEDS ORDERED: SODIUM CHLORIDE FLUSH 10ML SYR IVF PRN (15:30)
--- NOTE | 2018-09-28 15:54 | NUR ---
SBAR TO DENTON WATKINS VIA TELEPHONE
[2018-09-28 16:20] VITALS: BP 120/72
[2018-09-28] MEDS ORDERED: POLYETHYLENE GLYCOL 17 GM PACKET PO PRN (16:30)
[2018-09-28] MEDS ORDERED: IBUPROFEN 600 MG TABLET PO PRN (16:30)
[2018-09-28] MEDS ORDERED: hydrALAzine 20 MG/ML, 1ML IVPush PRN (16:30)
[2018-09-28] MEDS ORDERED: LABETALOL 5MG/ML, 20ML IVPush PRN (16:30)
[2018-09-28] MEDS ORDERED: DOCUSATE 100 MG CAPSULE PO PRN (16:30)
[2018-09-28] MEDS ORDERED: ACETAMINOPHEN 325 MG TABLET PO PRN (16:30)
[2018-09-28] MEDS ORDERED: GABAPENTIN 300 MG CAPSULE PO PRN (16:30)
[2018-09-28] MEDS ORDERED: BISACODYL 10 MG SUPP PR PRN (16:30)
[2018-09-28] MEDS ORDERED: GUAIFENESIN/DM 200-20MG, 10ML UDC PO PRN (16:30)
[2018-09-28] MEDS ORDERED: DARBEPOETIN 100 MCG/ML SQ SCH (17:00)
[2018-09-28] MEDS: LINEZOLID 600 MG TABLET PO SCH ×2 (17:58→23:15)
[2018-09-28] MEDS: CLINDAMYCIN PMX 900MG/50ML 50 ML IV SCH (17:58)
[2018-09-28] MEDS: OXYcodone/APAP 5/325MG TABLET PO PRN ×3 (17:59→23:57)
[2018-09-28 19:00] VITALS: BP 106/68
[2018-09-28] MEDS: LACTOBACILLUS 1GM/ PACKET PO SCH (23:24)
[2018-09-29] VITALS (7 sets, daily range): BP systolic 112–136; BP diastolic 70–94
[2018-09-29] MEDS: CLINDAMYCIN PMX 900MG/50ML 50 ML IV SCH ×2 (01:15→08:55)
[2018-09-29] MEDS ORDERED: DIPHENHYDRAMINE 25 MG CAPSULE PO ONE ×2 (01:30→09:00)
[2018-09-29] MEDS: OXYcodone/APAP 5/325MG TABLET PO PRN (04:48)
[2018-09-29] MEDS: ONDANSETRON ODT 4 MG PO PRN ×3 (05:49→23:39)
[2018-09-29] MEDS: LACTOBACILLUS 1GM/ PACKET PO SCH ×4 (05:52→21:44)
[2018-09-29] MEDS ORDERED: MAGNESIUM HYDROXIDE 8%, 30ML UDC ONE (06:36)
[2018-09-29 06:39] LABS: BASOPHILS # (AUTO) 0.01 x10^3/uL (0-0.1); BASOPHILS % (AUTO) 0 % (0-1); EOSINOPHILS # (AUTO) 0.06 x10^3/uL (0-0.4); EOSINOPHILS % (AUTO) 1 % (1-7); LYMPHOCYTES % (AUTO) 6 % (22-44); MD NO; MEAN CORPUSCULAR HEMOGLOBIN 32.1 pg (27.0-34.8); MEAN CORPUSCULAR HGB CONC 34.5 g/dL (32.4-35.8); MEAN PLATELET VOLUME 7.9 fL (7.4-10.4); MONOCYTES # (AUTO) 0.37 x10^3/uL (0.2-0.8); MONOCYTES % (AUTO) 6 % (2-9); NEUTROPHILS # (AUTO) 5.95 x10^3/uL (1.8-6.8); NEUTROPHILS % (AUTO) 88 % (42-75); PLATELET COUNT 132 x10^3/uL (130-400); RED BLOOD COUNT 3.15 x10^6/uL (3.82-5.3)
[2018-09-29 06:47] LABS: ANION GAP 8 mmol/L (5-15); CALCIUM 8.4 mg/dL (8.5-10.1); CHLORIDE 103 mmol/L (98-107)
[2018-09-29 06:48] LABS: CREATININE 4.72 mg/dL (0.55-1.02)
[2018-09-29] MEDS ORDERED: MAGNESIUM HYDROXIDE 8%, 30ML UDC PO ONE (07:00)
[2018-09-29] MEDS ORDERED: DIPHENHYDRAMINE 25 MG CAPSULE ONE (08:39)
[2018-09-29] MEDS: LINEZOLID 600 MG TABLET PO SCH ×2 (11:33→22:51)
[2018-09-29] MEDS: HYDROcodone/APAP 5/325 TABLET PO PRN ×3 (12:52→21:57)
[2018-09-29] MEDS: ERTAPENEM 0.5 GM in SODIUM CHLORIDE 0.9% 50 ML IV SCH (13:45)
[2018-09-29 14:23] LABS: HCT (SEDRATE) 32.1 % (34.6-47.8)
[2018-09-29] MEDS ORDERED: NITROGLYCERIN 0.4 MG BOTTLE (25 TABS) SL ONE (21:40)
[2018-09-29] MEDS ORDERED: NITROGLYCERIN 0.4 MG BOTTLE (25 TABS) SL PRN (22:00)
[2018-09-29 22:28] LABS: TROPONIN I < 0.015 ng/mL (0.000-0.045)
[2018-09-29] MEDS: TRAZODONE 150MG TABLET PO SCH (22:46)
[2018-09-30 02:35] VITALS: BP 127/83
[2018-09-30 06:26] VITALS: BP 124/74
[2018-09-30] MEDS: METOPROLOL TARTRATE 50 MG TABLET PO SCH ×2 (06:27→17:07)
[2018-09-30] MEDS: LACTOBACILLUS 1GM/ PACKET PO SCH ×4 (06:27→23:20)
[2018-09-30 07:12] LABS: TROPONIN I < 0.015 ng/mL (0.000-0.045)
[2018-09-30 07:21] VITALS: BP 128/86
[2018-09-30] MEDS: HYDROcodone/APAP 5/325 TABLET PO PRN ×3 (10:21→23:28)
[2018-09-30 12:22] VITALS: BP 129/87
[2018-09-30] MEDS: LINEZOLID 600 MG TABLET PO SCH ×2 (12:32→23:20)
[2018-09-30] MEDS: ERTAPENEM 0.5 GM in SODIUM CHLORIDE 0.9% 50 ML IV SCH (14:50)
[2018-09-30 20:00] VITALS: BP 143/82
[2018-09-30] MEDS: TRAZODONE 150MG TABLET PO SCH (23:20)
[2018-10-01 01:34] VITALS: BP 137/76
[2018-10-01] MEDS: LACTOBACILLUS 1GM/ PACKET PO SCH ×4 (06:00→21:53)
[2018-10-01 07:35] VITALS: BP 123/69
[2018-10-01] MEDS: SEVELAMER CARBONATE 800MG TAB PO SCH ×3 (08:50→17:42)
[2018-10-01] MEDS: HYDROcodone/APAP 5/325 TABLET PO PRN ×3 (08:55→23:40)
[2018-10-01 12:35] VITALS: BP 145/82
[2018-10-01] MEDS: ERTAPENEM 0.5 GM in SODIUM CHLORIDE 0.9% 50 ML IV SCH (13:47)
[2018-10-01 19:00] VITALS: BP 135/85
[2018-10-01] MEDS ORDERED: METOPROLOL TARTRATE 50 MG TABLET PO SCH (21:00)
[2018-10-01] MEDS: TRAZODONE 150MG TABLET PO SCH (23:40)
[2018-10-02 02:04] VITALS: BP 134/80
[2018-10-02] MEDS: LACTOBACILLUS 1GM/ PACKET PO SCH ×2 (06:00→12:42)
[2018-10-02 07:30] VITALS: BP 135/77
[2018-10-02] MEDS: SEVELAMER CARBONATE 800MG TAB PO SCH ×2 (08:00→12:42)
[2018-10-02] MEDS ORDERED: TRAM50TA2 PO (11:00)
[2018-10-02] MEDS ORDERED: CLIN300C3 PO (11:00)
[2018-10-02 12:45] VITALS: BP 134/84
[2018-10-02] MEDS ORDERED: ERTAPENEM 1 GM in SODIUM CHLORIDE 0.9% 50 ML IV ONE (14:00)
== END 2018-10-02 13:45 | disposition home or self-care (01) | DRG 602 ==
LOC: ED 15:35 → EDIP 15:36 → 4WST 16:15 → DCLOUNGE 10-02 13:20
PROVIDERS: ADMIT Hospitalist; ATTEND Hospitalist
PROC: 5A1D70Z Performance of Urinary Filtration, Intermittent, Less than 6 Hours Per Day (ICD-10-PCS; principal; 2018-09-28)
PROC: 5A1D70Z Performance of Urinary Filtration, Intermittent, Less than 6 Hours Per Day (ICD-10-PCS; 2018-09-30)
PROC: 5A1D70Z Performance of Urinary Filtration, Intermittent, Less than 6 Hours Per Day (ICD-10-PCS; 2018-10-02)
DX: L03.211 Cellulitis of face (principal); N18.6 End stage renal disease; K86.1 Other chronic pancreatitis; I12.0 Hypertensive chronic kidney disease with stage 5 chronic kidney disease or end stage renal disease; Z99.2 Dependence on renal dialysis; D63.1 Anemia in chronic kidney disease; E78.5 Hyperlipidemia, unspecified; N30.90 Cystitis, unspecified without hematuria; F12.90 Cannabis use, unspecified, uncomplicated; I25.10 Atherosclerotic heart disease of native coronary artery without angina pectoris; E88.89 Other specified metabolic disorders; K02.9 Dental caries, unspecified; I70.1 Atherosclerosis of renal artery; K59.00 Constipation, unspecified; M10.9 Gout, unspecified; M51.36 Other intervertebral disc degeneration, lumbar region; Z82.49 Family history of ischemic heart disease and other diseases of the circulatory system; Z83.3 Family history of diabetes mellitus; Z86.73 Personal history of transient ischemic attack (TIA), and cerebral infarction without residual deficits; Z88.0 Allergy status to penicillin; Z87.891 Personal history of nicotine dependence; Z88.8 Allergy status to other drugs, medicaments and biological substances; Z95.828 Presence of other vascular implants and grafts
CPT/HCPCS: 36415; 70487; 74018; 80048; 80069; 82040; 83605; 84145; 84484; 85025; 85651; 86140; 87040; 93005; 96365; 96375; G0378; J0696; J0881; J1335; J2405; Q0162; Q9967; Q0163

== ENCOUNTER 2018-10-17 12:40 | Emergency (ER) | payer MEDICARE, OTHER, MEDICAID ==
[~2018-10-17] VITALS: Ht 160 cm; Wt 64.4 kg
[~2018-10-17 12:40] MED LIST changes: +CLIN300C3 PO; +TRAM50TA2 PO
[2018-10-17 14:34] LABS: ALBUMIN 3.6 g/dL (3.4-5.0); ANION GAP 7 mmol/L (5-15); CALCIUM 8.3 mg/dL (8.5-10.1); CHLORIDE 97 mmol/L (98-107); CREATININE 6.65 mg/dL (0.55-1.02)
[2018-10-17 14:54] LABS: MEAN CORPUSCULAR HEMOGLOBIN 31.8 pg (27.0-34.8); MEAN CORPUSCULAR HGB CONC 33.8 g/dL (32.4-35.8); MEAN CORPUSCULAR VOLUME 93.9 fL (80-100); MEAN PLATELET VOLUME 8.1 fL (7.4-10.4); PLATELET COUNT 180 x10^3/uL (130-400); RED BLOOD COUNT 3.79 x10^6/uL (3.82-5.3); RED CELL DISTRIBUTION WIDTH 14.7 % (9.6-15.2)
[2018-10-17 14:57] LABS: BASOPHILS # (AUTO) 0.04 x10^3/uL (0-0.1); BASOPHILS % (AUTO) 1 % (0-1); EOSINOPHILS # (AUTO) 0.15 x10^3/uL (0-0.4); EOSINOPHILS % (AUTO) 4 % (1-7); LYMPHOCYTES # (AUTO) 0.98 x10^3/uL (1-3.4); LYMPHOCYTES % (AUTO) 28 % (22-44); MD SCAN; MONOCYTES # (AUTO) 0.27 x10^3/uL (0.2-0.8); MONOCYTES % (AUTO) 8 % (2-9); NEUTROPHILS # (AUTO) 2.12 x10^3/uL (1.8-6.8); NEUTROPHILS % (AUTO) 60 % (42-75)
--- NOTE | 2018-10-17 15:04 | NUR ---
PT RESTING IN [facility], NO NEEDS AT THIS TIME, CALL LIGHT WITHIN REACH
[2018-10-17 15:15] VITALS: BP 116/73
== END 2018-10-17 15:17 | disposition home or self-care (01) ==
LOC: ED 13:51
DX: K08.89 Other specified disorders of teeth and supporting structures (principal); I12.9 Hypertensive chronic kidney disease with stage 1 through stage 4 chronic kidney disease, or unspecified chronic kidney disease; N18.4 Chronic kidney disease, stage 4 (severe)
CPT/HCPCS: 36415; 80048; 82040; 85025; 99283

== ENCOUNTER 2019-01-19 14:12 | Inpatient (IN) | payer MEDICARE, OTHER, MEDICAID ==
[~2019-01-19] VITALS: Ht 161.3 cm; Wt 67.7 kg
[~2019-01-19 14:12] MED LIST changes: +CHOL200040 PO
--- NOTE | 2019-01-19 14:21 | NUR ---
called from lobby for triage, no answer
--- NOTE | 2019-01-19 14:50 | NUR ---
PT TO ED FOR N/V STARTING TODAY, LEFT SIDED ABD AN DLEFT FLANK PAIN X1 WEEK AND DIARRHEA X1 WEEK. PT STATES COMPLETED 5-DAY Z PACK APPROX 3.5 WEEKS AGO FOR TOOTH ABSCESS. PT CONNECTED TO MONITORS. ALL VSS ON RA. AWAITING EDMD ASSESSMENT.
[2019-01-19 15:02] LABS: BASOPHILS # (AUTO) 0.03 x10^3/uL (0-0.1); BASOPHILS % (AUTO) 1 % (0-1); EOSINOPHILS # (AUTO) 0.16 x10^3/uL (0-0.4); EOSINOPHILS % (AUTO) 3 % (1-7); LYMPHOCYTES # (AUTO) 1.14 x10^3/uL (1-3.4); LYMPHOCYTES % (AUTO) 23 % (22-44); MD NO; MEAN CORPUSCULAR HGB CONC 32.6 g/dL (32.4-35.8); MONOCYTES # (AUTO) 0.45 x10^3/uL (0.2-0.8); MONOCYTES % (AUTO) 9 % (2-9); NEUTROPHILS # (AUTO) 3.21 x10^3/uL (1.8-6.8); NEUTROPHILS % (AUTO) 64 % (42-75); PLATELET COUNT 200 x10^3/uL (130-400); RED BLOOD COUNT 3.77 x10^6/uL (3.82-5.3); RED CELL DISTRIBUTION WIDTH 15.3 % (9.6-15.2)
--- NOTE | 2019-01-19 15:02 | NUR ---
pt to imaging at this time. stool sample collected and walked to lab.
[2019-01-19 15:11] LABS: ALBUMIN 3.7 g/dL (3.4-5.0); ANION GAP 9 mmol/L (5-15); CALCIUM 7.7 mg/dL (8.5-10.1); CHLORIDE 95 mmol/L (98-107)
[2019-01-19 15:48] LABS: CLOSTRIDIUM DIFFICILE ANTIGEN POSITIVE; CLOSTRIDIUM DIFFICILE TOXIN POSITIVE (Negative)
--- NOTE | 2019-01-19 16:00 | NUR ---
new orders received for ct abd with contrast. rn x2 attempting iv at this time. vss. awaiting iv for ct.
--- NOTE | 2019-01-19 16:12 | NUR ---
ct with contrast changed to ct without. pt to ct at this time.
--- NOTE | 2019-01-19 16:27 | NUR ---
pt back from ct at this time. rn to attempt us iv.
[2019-01-19] MEDS ORDERED: SODIUM CHLORIDE 0.9% 1,000 ML IV SCH (17:23)
[2019-01-19] MEDS ORDERED: ONDANSETRON 2MG/ML, 2ML ONE (17:26)
[2019-01-19] MEDS ORDERED: HYDROmorphone 2 MG/ML, 1ML ONE (17:27)
[2019-01-19] MEDS ORDERED: ONDANSETRON 2MG/ML, 2ML IVPush ONE (17:30)
[2019-01-19] MEDS ORDERED: ACETAMINOPHEN 325 MG TABLET PO PRN (17:30)
[2019-01-19] MEDS ORDERED: PROMETHAZINE 25 MG/ML, 1ML IM PRN (17:30)
[2019-01-19] MEDS ORDERED: hydrALAzine 20 MG/ML, 1ML IVPush PRN (17:30)
[2019-01-19] MEDS ORDERED: HYDROmorphone 2 MG/ML, 1ML IVPush PRN (17:30)
[2019-01-19] MEDS ORDERED: LABETALOL 5MG/ML, 20ML IVPush PRN (17:30)
[2019-01-19] MEDS ORDERED: metroNIDAZOLE 500 MG TABLET PO ONE (17:30)
[2019-01-19] MEDS: HEPARIN 5,000 UNITS/ML, 1ML SQ SCH (19:47)
[2019-01-19] MEDS: VANCOMYCIN 50 MG/ML ORAL SUSP PO SCH (19:48)
[2019-01-19 19:59] VITALS: BP 119/77
[2019-01-19] MEDS: morphine SULFATE 10 MG/ML, 1ML IVPush PRN (21:11)
[2019-01-19] MEDS: TRAZODONE 150MG TABLET PO SCH (21:18)
[2019-01-19] MEDS: METOPROLOL TARTRATE 50 MG TABLET PO SCH (21:18)
[2019-01-19] MEDS: ONDANSETRON 2MG/ML, 2ML IVPush PRN (23:51)
[2019-01-19 23:55] VITALS: BP 119/77
[2019-01-20] MEDS: HEPARIN 5,000 UNITS/ML, 1ML SQ SCH ×3 (01:43→20:02)
[2019-01-20] MEDS: VANCOMYCIN 50 MG/ML ORAL SUSP PO SCH ×4 (01:43→20:02)
[2019-01-20] MEDS: morphine SULFATE 10 MG/ML, 1ML IVPush PRN ×3 (01:44→12:17)
[2019-01-20 02:45] VITALS: BP 104/60
[2019-01-20 05:17] LABS: BASOPHILS # (AUTO) 0.02 x10^3/uL (0-0.1); BASOPHILS % (AUTO) 0 % (0-1); EOSINOPHILS % (AUTO) 2 % (1-7); LYMPHOCYTES # (AUTO) 1.04 x10^3/uL (1-3.4); LYMPHOCYTES % (AUTO) 22 % (22-44); MD NO; MEAN CORPUSCULAR HEMOGLOBIN 31.5 pg (27.0-34.8); MEAN CORPUSCULAR HGB CONC 32.8 g/dL (32.4-35.8); MEAN CORPUSCULAR VOLUME 96.3 fL (80-100); MONOCYTES # (AUTO) 0.31 x10^3/uL (0.2-0.8); MONOCYTES % (AUTO) 7 % (2-9); NEUTROPHILS # (AUTO) 3.32 x10^3/uL (1.8-6.8); NEUTROPHILS % (AUTO) 69 % (42-75); PLATELET COUNT 175 x10^3/uL (130-400); RED BLOOD COUNT 3.65 x10^6/uL (3.82-5.3); RED CELL DISTRIBUTION WIDTH 15.3 % (9.6-15.2)
[2019-01-20 05:24] LABS: ALANINE AMINOTRANSFERASE 11 U/L (12-78); ALBUMIN 3.3 g/dL (3.4-5.0); ANION GAP 9 mmol/L (5-15); CALCIUM 7.8 mg/dL (8.5-10.1); CHLORIDE 98 mmol/L (98-107); CREATININE 8.96 mg/dL (0.55-1.02)
[2019-01-20 05:26] LABS: ALKALINE PHOSPHATASE 145 U/L (45-117); BILIRUBIN,TOTAL 0.5 mg/dL (0.2-1.0); TOTAL PROTEIN 7.5 g/dL (6.4-8.2)
[2019-01-20] MEDS: ONDANSETRON 2MG/ML, 2ML IVPush PRN ×2 (06:37→12:17)
[2019-01-20 06:57] LABS: MICROSCOPIC INDICATED
[2019-01-20 07:17] VITALS: BP 118/76
[2019-01-20 07:34] LABS: CULTURE INDICATED? NO
[2019-01-20] MEDS: SEVELAMER CARBONATE 800MG TAB PO SCH ×3 (07:44→16:55)
[2019-01-20] MEDS ORDERED: CHOLECALCIFEROL 5,000u TAB PO SCH (11:00)
[2019-01-20 14:06] VITALS: BP 114/69
[2019-01-20 20:39] VITALS: BP 105/62
[2019-01-20] MEDS: CALCIUM CARBONATE 500 MG TABLET PO SCH (21:00)
[2019-01-20] MEDS: METOPROLOL TARTRATE 50 MG TABLET PO SCH (21:00)
[2019-01-20 21:31] VITALS: BP 99/61
[2019-01-20] MEDS: HYDROcodone/APAP 5/325 TABLET PO PRN (21:35)
[2019-01-21 00:06] VITALS: BP 97/62
[2019-01-21] MEDS: TRAZODONE 150MG TABLET PO SCH (00:11)
[2019-01-21] MEDS: VANCOMYCIN 50 MG/ML ORAL SUSP PO SCH ×4 (02:14→20:07)
[2019-01-21] MEDS: HYDROcodone/APAP 5/325 TABLET PO PRN ×2 (02:14→11:04)
[2019-01-21] MEDS: HEPARIN 5,000 UNITS/ML, 1ML SQ SCH ×3 (05:07→20:07)
[2019-01-21 06:11] LABS: BASOPHILS # (AUTO) 0.09 x10^3/uL (0-0.1); BASOPHILS % (AUTO) 2 % (0-1); EOSINOPHILS # (AUTO) 0.16 x10^3/uL (0-0.4); EOSINOPHILS % (AUTO) 3 % (1-7); LYMPHOCYTES # (AUTO) 1.47 x10^3/uL (1-3.4); LYMPHOCYTES % (AUTO) 31 % (22-44); MD NO; MEAN CORPUSCULAR HEMOGLOBIN 31.3 pg (27.0-34.8); MEAN CORPUSCULAR VOLUME 94.8 fL (80-100); MEAN PLATELET VOLUME 8.4 fL (7.4-10.4); MONOCYTES % (AUTO) 8 % (2-9); NEUTROPHILS # (AUTO) 2.67 x10^3/uL (1.8-6.8); NEUTROPHILS % (AUTO) 56 % (42-75); PLATELET COUNT 177 x10^3/uL (130-400); RED BLOOD COUNT 3.76 x10^6/uL (3.82-5.3); RED CELL DISTRIBUTION WIDTH 15.4 % (9.6-15.2)
[2019-01-21 06:25] LABS: CHLORIDE 98 mmol/L (98-107)
[2019-01-21 06:44] LABS: ALBUMIN 3.6 g/dL (3.4-5.0); ANION GAP 8 mmol/L (5-15); CALCIUM 7.8 mg/dL (8.5-10.1); CREATININE 6.55 mg/dL (0.55-1.02)
[2019-01-21] MEDS: SEVELAMER CARBONATE 800MG TAB PO SCH ×3 (07:00→16:00)
[2019-01-21] MEDS: CHOLECALCIFEROL 1,000 UNIT TABLET PO SCH (08:15)
[2019-01-21] MEDS: CALCIUM CARBONATE 500 MG TABLET PO SCH ×2 (08:16→21:00)
[2019-01-21 14:53] VITALS: BP 108/69
[2019-01-21 19:52] VITALS: BP 95/63
[2019-01-22 01:31] VITALS: BP 99/64
[2019-01-22] MEDS: METOPROLOL TARTRATE 50 MG TABLET PO SCH (01:59)
[2019-01-22] MEDS: TRAZODONE 150MG TABLET PO SCH (01:59)
[2019-01-22] MEDS: VANCOMYCIN 50 MG/ML ORAL SUSP PO SCH ×2 (02:02→08:26)
[2019-01-22] MEDS: HEPARIN 5,000 UNITS/ML, 1ML SQ SCH ×2 (04:00→12:00)
[2019-01-22 04:48] LABS: BASOPHILS # (AUTO) 0.04 x10^3/uL (0-0.1); BASOPHILS % (AUTO) 1 % (0-1); EOSINOPHILS % (AUTO) 5 % (1-7); LYMPHOCYTES # (AUTO) 1.49 x10^3/uL (1-3.4); LYMPHOCYTES % (AUTO) 38 % (22-44); MD NO; MEAN CORPUSCULAR HEMOGLOBIN 32.2 pg (27.0-34.8); MEAN CORPUSCULAR HGB CONC 33.5 g/dL (32.4-35.8); MEAN CORPUSCULAR VOLUME 96.1 fL (80-100); MONOCYTES # (AUTO) 0.37 x10^3/uL (0.2-0.8); MONOCYTES % (AUTO) 10 % (2-9); NEUTROPHILS % (AUTO) 46 % (42-75); PLATELET COUNT 163 x10^3/uL (130-400); RED BLOOD COUNT 3.55 x10^6/uL (3.82-5.3); RED CELL DISTRIBUTION WIDTH 15.6 % (9.6-15.2)
[2019-01-22 05:01] LABS: ALBUMIN 3.3 g/dL (3.4-5.0); ANION GAP 11 mmol/L (5-15); CALCIUM 7.7 mg/dL (8.5-10.1); CHLORIDE 97 mmol/L (98-107)
[2019-01-22 05:07] LABS: ALANINE AMINOTRANSFERASE 15 U/L (12-78); ALKALINE PHOSPHATASE 140 U/L (45-117); BILIRUBIN,TOTAL 0.3 mg/dL (0.2-1.0); CREATININE 9.39 mg/dL (0.55-1.02); TOTAL PROTEIN 7.5 g/dL (6.4-8.2)
[2019-01-22] MEDS: SEVELAMER CARBONATE 800MG TAB PO SCH ×2 (07:00→12:17)
[2019-01-22 07:20] VITALS: BP 94/58
[2019-01-22] MEDS: CALCIUM CARBONATE 500 MG TABLET PO SCH (08:26)
[2019-01-22] MEDS: CHOLECALCIFEROL 1,000 UNIT TABLET PO SCH (08:35)
[2019-01-22] MEDS ORDERED: VANC1VIA3 PO (09:49)
[2019-01-22] MEDS ORDERED: CALC500T11 PO (09:49)
[2019-01-22] MEDS ORDERED: ACET325T26 PO (09:51)
[2019-01-22] MEDS ORDERED: TRAM50TA2 PO (09:51)
[2019-03-08] MEDS ORDERED: METO25TA35 PO (20:01)
[2019-03-12] MEDS ORDERED: DOCU-131 PO (15:45)
[2019-03-12] MEDS ORDERED: PROM25TA10 PO (15:45)
[2019-03-12] MEDS ORDERED: LINE600T15 PO (15:45)
[2019-03-12] MEDS ORDERED: OXYC5TAB3 PO (15:45)
== END 2019-01-22 14:01 | disposition home or self-care (01) | DRG 371 ==
LOC: ED 17:01 → EDIP 17:02 → ED 17:13 → 4NOR 18:23 → 4WST 01-20 20:33
PROVIDERS: ADMIT Internal Medicine; ATTEND Internal Medicine
PROC: 5A1D70Z Performance of Urinary Filtration, Intermittent, Less than 6 Hours Per Day (ICD-10-PCS; principal; 2019-01-20)
PROC: 5A1D70Z Performance of Urinary Filtration, Intermittent, Less than 6 Hours Per Day (ICD-10-PCS; 2019-01-22)
DX: A04.72 Enterocolitis due to Clostridium difficile, not specified as recurrent (principal); N18.6 End stage renal disease; I12.0 Hypertensive chronic kidney disease with stage 5 chronic kidney disease or end stage renal disease; E87.1 Hypo-osmolality and hyponatremia; M10.9 Gout, unspecified; E83.51 Hypocalcemia; I16.0 Hypertensive urgency; G89.29 Other chronic pain; M54.9 Dorsalgia, unspecified; E78.5 Hyperlipidemia, unspecified; I25.10 Atherosclerotic heart disease of native coronary artery without angina pectoris; D63.1 Anemia in chronic kidney disease; Z99.2 Dependence on renal dialysis; Z86.73 Personal history of transient ischemic attack (TIA), and cerebral infarction without residual deficits; Z82.49 Family history of ischemic heart disease and other diseases of the circulatory system; Z98.1 Arthrodesis status; Z88.0 Allergy status to penicillin; Z88.8 Allergy status to other drugs, medicaments and biological substances; Z79.899 Other long term (current) drug therapy
CPT/HCPCS: 36415; 74018; 74021; 74176; 80048; 80053; 80069; 81001; 82040; 83735; 84703; 85025; 87324; 89055; 90935; 96374; 96375; 99285; G0378; J1170; J1644; J2405; J2550; J3370; J2270; J7030

== ENCOUNTER 2019-05-03 21:03 | Inpatient (IN) | payer OTHER, MEDICARE ==
[~2019-05-03] VITALS: Ht 162.6 cm; Wt 66.4 kg
[~2019-05-03 21:03] MED LIST changes: +ACET325T26 PO; +CALC500T11 PO; +DOCU-131 PO; +LINE600T15 PO; +OXYC5TAB3 PO; +PROM25TA10 PO; +VANC1VIA3 PO
[2019-05-03] MEDS ORDERED: ONDANSETRON 2MG/ML, 2ML ONE (21:17)
[2019-05-03] MEDS ORDERED: MAALOX/HYOSCYAMINE/LIDOCAINE 45 ML BTL ONE (21:17)
[2019-05-03] MEDS ORDERED: FAMOTIDINE 20 MG/2 ML ONE (21:17)
[2019-05-03] MEDS ORDERED: MORPHINE SULFATE 4 MG/ML, 1ML ONE (21:17)
[2019-05-03] MEDS ORDERED: FAMOTIDINE 20 MG/2 ML IV ONE (21:30)
[2019-05-03] MEDS ORDERED: SODIUM CHLORIDE FLUSH 10ML SYR IVF ONE (21:30)
[2019-05-03] MEDS ORDERED: MAALOX/HYOSCYAMINE/LIDOCAINE 45 ML BTL PO ONE (21:30)
[2019-05-03] MEDS ORDERED: ONDANSETRON 2MG/ML, 2ML IVPush ONE (21:30)
[2019-05-03 21:41] LABS: BASOPHILS # (AUTO) 0.02 x10^3/uL (0-0.1); BASOPHILS % (AUTO) 0 % (0-1); EOSINOPHILS # (AUTO) 0.13 x10^3/uL (0-0.4); EOSINOPHILS % (AUTO) 2 % (1-7); LYMPHOCYTES # (AUTO) 1.06 x10^3/uL (1-3.4); LYMPHOCYTES % (AUTO) 20 % (22-44); MD NO; MEAN CORPUSCULAR HEMOGLOBIN 32.1 pg (27.0-34.8); MEAN CORPUSCULAR HGB CONC 33.3 g/dL (32.4-35.8); MEAN CORPUSCULAR VOLUME 96.4 fL (80-100); MEAN PLATELET VOLUME 7.6 fL (7.4-10.4); MONOCYTES # (AUTO) 0.51 x10^3/uL (0.2-0.8); MONOCYTES % (AUTO) 10 % (2-9); NEUTROPHILS % (AUTO) 68 % (42-75); PLATELET COUNT 234 x10^3/uL (130-400); RED BLOOD COUNT 3.96 x10^6/uL (3.82-5.3)
[2019-05-03] MEDS: MORPHINE SULFATE 4 MG/ML, 1ML IVPush PRN (21:41)
--- NOTE | 2019-05-03 21:45 | NUR ---
PT CHOSE TO HOLD ON GI COCKTAIL DUE TO NAUSEA. ZOFRAN, MORPHINE & PEPCID GIVEN PER EMAR. PT C/O ITCHINESS TO RAC, DIFFUSE BLISTER-LIKE AREAS NOTED. WILL NOTIFY ERP.
[2019-05-03] MEDS ORDERED: DIPHENHYDRAMINE 50 MG/ML, 1ML ONE (21:48)
[2019-05-03 21:52] LABS: ALANINE AMINOTRANSFERASE 25 U/L (12-78); ALBUMIN 3.7 g/dL (3.4-5.0); ANION GAP 6 mmol/L (5-15); CALCIUM 7.9 mg/dL (8.5-10.1); CHLORIDE 93 mmol/L (98-107)
[2019-05-03 21:57] LABS: ALKALINE PHOSPHATASE 235 U/L (45-117); BILIRUBIN,TOTAL 0.3 mg/dL (0.2-1.0); CREATININE 6.95 mg/dL (0.55-1.02); TOTAL PROTEIN 8.7 g/dL (6.4-8.2); TROPONIN I < 0.015 ng/mL (0.000-0.045)
[2019-05-03] MEDS ORDERED: DIPHENHYDRAMINE 50 MG/ML, 1ML IVPush ONE (22:00)
[2019-05-03] MEDS ORDERED: TRAZ150T62 PO (22:37)
--- NOTE | 2019-05-03 22:38 | NUR ---
PT REPORTS DECREASED NAUSEA, DECREASED ABD PAIN. REFUSING GI COCKTAIL
--- NOTE | 2019-05-03 23:00 | NUR ---
PT REPORT TO ROLAND DAUGHERTY. PT CARE TRANSFERRED.
[2019-05-04] MEDS ORDERED: MORPHINE SULFATE 4 MG/ML, 1ML ONE (00:19)
[2019-05-04] MEDS: MORPHINE SULFATE 4 MG/ML, 1ML IVPush PRN (00:21)
[2019-05-04 01:55] VITALS: BP 118/74
[2019-05-04 02:00] VITALS: BP 118/74
[2019-05-04] MEDS: SODIUM CHLORIDE 0.9% 1,000 ML IV SCH ×2 (02:31→14:01)
[2019-05-04] MEDS: morphine SULFATE 10 MG/ML, 1ML IVPush PRN ×3 (04:04→12:20)
[2019-05-04] MEDS ORDERED: ACETAMINOPHEN 325 MG TABLET PO PRN (05:30)
[2019-05-04] MEDS ORDERED: hydrALAzine 20 MG/ML, 1ML IVPush PRN (05:30)
[2019-05-04] MEDS: HEPARIN 5,000 UNITS/ML, 1ML SQ SCH ×3 (05:30→20:45)
[2019-05-04] MEDS ORDERED: ONDANSETRON 2MG/ML, 2ML IVPush PRN (05:30)
[2019-05-04 06:47] VITALS: BP 98/64
[2019-05-04 06:56] LABS: BASOPHILS # (AUTO) 0.04 x10^3/uL (0-0.1); BASOPHILS % (AUTO) 1 % (0-1); EOSINOPHILS # (AUTO) 0.15 x10^3/uL (0-0.4); EOSINOPHILS % (AUTO) 3 % (1-7); LYMPHOCYTES % (AUTO) 25 % (22-44); MD NO; MEAN CORPUSCULAR HEMOGLOBIN 31.1 pg (27.0-34.8); MEAN CORPUSCULAR HGB CONC 32.5 g/dL (32.4-35.8); MEAN CORPUSCULAR VOLUME 95.6 fL (80-100); MEAN PLATELET VOLUME 7.5 fL (7.4-10.4); MONOCYTES # (AUTO) 0.52 x10^3/uL (0.2-0.8); MONOCYTES % (AUTO) 9 % (2-9); NEUTROPHILS % (AUTO) 63 % (42-75); PLATELET COUNT 196 x10^3/uL (130-400); RED BLOOD COUNT 3.57 x10^6/uL (3.82-5.3); RED CELL DISTRIBUTION WIDTH 13.9 % (9.6-15.2)
[2019-05-04 07:07] LABS: ALANINE AMINOTRANSFERASE 17 U/L (12-78); ALBUMIN 3.3 g/dL (3.4-5.0); ANION GAP 8 mmol/L (5-15); CALCIUM 7.2 mg/dL (8.5-10.1); CHLORIDE 97 mmol/L (98-107); CHOLESTEROL, TOTAL 161 mg/dL (140-239); CREATININE 8.13 mg/dL (0.55-1.02); TRIGLYCERIDES 58 mg/dL (50-200); VLDL CHOLESTEROL 12 mg/dL (0-25)
[2019-05-04 07:09] LABS: ALKALINE PHOSPHATASE 182 U/L (45-117); BILIRUBIN,TOTAL 0.3 mg/dL (0.2-1.0); CHOL/HDL RATIO 2.1; HDL CHOL % 47 % (28-40); HDL CHOLESTEROL (DIRECT) 75 mg/dL (40-60); LDL CHOLESTEROL,CALCULATED 74 mg/dL (54-169); TOTAL PROTEIN 7.6 g/dL (6.4-8.2)
[2019-05-04] MEDS: PROMETHAZINE 25 MG/ML, 1ML IM PRN ×2 (07:35→12:19)
[2019-05-04 13:31] VITALS: BP 103/62
[2019-05-04] MEDS: HYDROcodone/APAP 5/325 TABLET PO PRN ×2 (16:18→23:31)
[2019-05-04 19:16] VITALS: BP 111/76
[2019-05-05] MEDS: HYDROcodone/APAP 5/325 TABLET PO PRN ×5 (03:31→22:06)
[2019-05-05 03:36] VITALS: BP 118/76
[2019-05-05] MEDS: HEPARIN 5,000 UNITS/ML, 1ML SQ SCH ×3 (05:24→21:30)
[2019-05-05 05:37] LABS: BASOPHILS # (AUTO) 0.02 x10^3/uL (0-0.1); BASOPHILS % (AUTO) 1 % (0-1); EOSINOPHILS # (AUTO) 0.15 x10^3/uL (0-0.4); EOSINOPHILS % (AUTO) 3 % (1-7); LYMPHOCYTES # (AUTO) 1.16 x10^3/uL (1-3.4); LYMPHOCYTES % (AUTO) 25 % (22-44); MD NO; MEAN CORPUSCULAR HEMOGLOBIN 32.1 pg (27.0-34.8); MEAN CORPUSCULAR HGB CONC 33.3 g/dL (32.4-35.8); MEAN CORPUSCULAR VOLUME 96.3 fL (80-100); MEAN PLATELET VOLUME 8.3 fL (7.4-10.4); MONOCYTES # (AUTO) 0.38 x10^3/uL (0.2-0.8); MONOCYTES % (AUTO) 8 % (2-9); NEUTROPHILS # (AUTO) 2.87 x10^3/uL (1.8-6.8); NEUTROPHILS % (AUTO) 63 % (42-75); PLATELET COUNT 183 x10^3/uL (130-400); RED BLOOD COUNT 3.22 x10^6/uL (3.82-5.3); RED CELL DISTRIBUTION WIDTH 14.1 % (9.6-15.2)
[2019-05-05 05:43] LABS: ALANINE AMINOTRANSFERASE 19 U/L (12-78); ANION GAP 11 mmol/L (5-15); CALCIUM 7.5 mg/dL (8.5-10.1); CHLORIDE 99 mmol/L (98-107); CREATININE 9.74 mg/dL (0.55-1.02)
[2019-05-05 05:45] LABS: ALKALINE PHOSPHATASE 103 U/L (45-117); BILIRUBIN,TOTAL 0.5 mg/dL (0.2-1.0); TOTAL PROTEIN 6.8 g/dL (6.4-8.2)
[2019-05-05 07:32] VITALS: BP 117/74
[2019-05-05] MEDS: PROMETHAZINE 25 MG/ML, 1ML IM PRN (07:36)
[2019-05-05 13:03] VITALS: BP 115/69
[2019-05-05 19:23] VITALS: BP 114/75
[2019-05-06 01:37] VITALS: BP 108/70
[2019-05-06] MEDS: HYDROcodone/APAP 5/325 TABLET PO PRN ×2 (03:34→08:54)
[2019-05-06 05:27] LABS: ALBUMIN 3.4 g/dL (3.4-5.0); ANION GAP 8 mmol/L (5-15); CALCIUM 7.9 mg/dL (8.5-10.1); CHLORIDE 96 mmol/L (98-107)
[2019-05-06 05:28] LABS: CREATININE 7.51 mg/dL (0.55-1.02)
[2019-05-06] MEDS: HEPARIN 5,000 UNITS/ML, 1ML SQ SCH (05:30)
[2019-05-06 07:03] VITALS: BP 104/68
[2019-05-06] MEDS ORDERED: ONDA4TAB13 SL (10:26)
[2019-05-06] MEDS ORDERED: SIMV20TA PO (10:35)
== END 2019-05-06 11:44 | disposition home or self-care (01) | DRG 438 ==
LOC: ED 23:10 → EDIP 23:43 → 3N 05-04 00:46 → DCLOUNGE 05-06 11:28
PROVIDERS: ADMIT Family Medicine; ATTEND Internal Medicine
PROC: 5A1D70Z Performance of Urinary Filtration, Intermittent, Less than 6 Hours Per Day (ICD-10-PCS; principal; 2019-05-05)
DX: K85.00 Idiopathic acute pancreatitis without necrosis or infection (principal); N18.6 End stage renal disease; E87.3 Alkalosis; I12.0 Hypertensive chronic kidney disease with stage 5 chronic kidney disease or end stage renal disease; D63.1 Anemia in chronic kidney disease; E78.5 Hyperlipidemia, unspecified; E87.70 Fluid overload, unspecified; H66.90 Otitis media, unspecified, unspecified ear; I25.10 Atherosclerotic heart disease of native coronary artery without angina pectoris; I70.1 Atherosclerosis of renal artery; K52.9 Noninfective gastroenteritis and colitis, unspecified; Z86.19 Personal history of other infectious and parasitic diseases; Z86.73 Personal history of transient ischemic attack (TIA), and cerebral infarction without residual deficits; Z99.2 Dependence on renal dialysis; Z88.0 Allergy status to penicillin; Z91.018 Allergy to other foods
CPT/HCPCS: 36415; J3490; 80053; 80061; 80069; 83690; 83735; 84100; 84484; 84703; 85014; 85018; 85025; 86704; 86706; 87340; 90935; 93005; G0378; J1644; J2405; J2550; J1200; J2270; J7030

== ENCOUNTER 2019-05-17 16:22 | Inpatient (IN) | payer MEDICARE, OTHER ==
[~2019-05-17] VITALS: Ht 160 cm; Wt 66.1 kg
[~2019-05-17 16:22] MED LIST changes: +ONDA4TAB13 SL; +SIMV20TA PO
--- NOTE | 2019-05-17 17:00 | NUR ---
SUDDEN ONSET LOWER ABDOMINAL PAIN TODAY.
[2019-05-17] MEDS ORDERED: ONDANSETRON 2MG/ML, 2ML IVPush ONE (17:30)
[2019-05-17 17:37] LABS: BASOPHILS # (AUTO) 0.03 x10^3/uL (0-0.1); BASOPHILS % (AUTO) 1 % (0-1); EOSINOPHILS # (AUTO) 0.08 x10^3/uL (0-0.4); EOSINOPHILS % (AUTO) 2 % (1-7); LYMPHOCYTES # (AUTO) 0.66 x10^3/uL (1-3.4); LYMPHOCYTES % (AUTO) 16 % (22-44); MD NO; MEAN CORPUSCULAR HGB CONC 33.1 g/dL (32.4-35.8); MEAN CORPUSCULAR VOLUME 96.8 fL (80-100); MEAN PLATELET VOLUME 7.4 fL (7.4-10.4); MONOCYTES # (AUTO) 0.31 x10^3/uL (0.2-0.8); MONOCYTES % (AUTO) 8 % (2-9); NEUTROPHILS # (AUTO) 3.08 x10^3/uL (1.8-6.8); NEUTROPHILS % (AUTO) 74 % (42-75); PLATELET COUNT 205 x10^3/uL (130-400); RED BLOOD COUNT 3.96 x10^6/uL (3.82-5.3); RED CELL DISTRIBUTION WIDTH 14.8 % (9.6-15.2)
[2019-05-17] MEDS ORDERED: HYDROmorphone 1 MG/ML, 1ML VIAL ONE ×2 (17:43→20:59)
[2019-05-17] MEDS ORDERED: ONDANSETRON 2MG/ML, 2ML ONE (17:44)
[2019-05-17] MEDS: HYDROmorphone 2 MG/ML, 1ML IVPush PRN ×2 (17:47→21:02)
[2019-05-17 17:50] LABS: ALBUMIN 3.6 g/dL (3.4-5.0); ANION GAP 6 mmol/L (5-15); CALCIUM 8.7 mg/dL (8.5-10.1); CHLORIDE 94 mmol/L (98-107)
[2019-05-17 17:54] LABS: ALANINE AMINOTRANSFERASE 19 U/L (12-78); ALKALINE PHOSPHATASE 136 U/L (45-117); BILIRUBIN,TOTAL 0.4 mg/dL (0.2-1.0); TOTAL PROTEIN 8.4 g/dL (6.4-8.2)
--- NOTE | 2019-05-17 17:57 | NUR ---
medicated per mar for pain and nausea.
[2019-05-17] MEDS ORDERED: SODIUM CHLORIDE FLUSH 10ML SYR IVF ONE (18:00)
--- NOTE | 2019-05-17 19:09 | NUR ---
VOMITED X1.
--- NOTE | 2019-05-17 19:12 | NUR ---
REPORT TO FUAD WATKINS
--- NOTE | 2019-05-17 19:27 | NUR ---
NEW IV PLACED FOR CT.
--- NOTE | 2019-05-17 19:48 | NUR ---
TO CT VIA CART.
[2019-05-17] MEDS ORDERED: OMNIPAQUE 350 MG/ML, 100ML BOTTLE ONE (20:02)
[2019-05-17 20:08] LABS: MICROSCOPIC AUTO
[2019-05-17 20:11] LABS: CULTURE INDICATED? NO
[2019-05-17] MEDS ORDERED: PROCHLORPERAZINE 5 MG/ML, 2ML ONE (20:59)
[2019-05-17] MEDS ORDERED: PROCHLORPERAZINE 5 MG/ML, 2ML IVPush ONE (21:00)
--- NOTE | 2019-05-17 21:15 | NUR ---
PT TO DESK, STATES "CANT STOP VOMITING, AND HAVING SO MUCH PAIN". MD AWARE, CAME TO SPEAK C PT ABOUT POSSIBLE ADMISSION FOR PAIN CONTROL, ALL TESTS NEGATIVE. GIVEN MEDS PER MAR, TOLERATED WELL. WHEN ASKED ABOUT ADMISSION, "IF EVERYTHING IS NEGATIVE, I DONT SEE WHY I SHOULD STAY". WILL CTM. CALL LIGHT IN REACH.
--- NOTE | 2019-05-17 21:34 | NUR ---
PHLEB AT BS .
[2019-05-17 23:00] VITALS: BP 121/79
[2019-05-17] MEDS ORDERED: SODIUM CHLORIDE 0.9% 1,000 ML IV SCH (23:43)
[2019-05-18] MEDS ORDERED: TEMAZEPAM 15 MG CAPSULE PO PRN
[2019-05-18] MEDS ORDERED: LIDODERM 5% PATCH TD PRN
[2019-05-18] MEDS ORDERED: BISACODYL 10 MG SUPP PR PRN
[2019-05-18] MEDS ORDERED: ONDANSETRON 2MG/ML, 2ML IVPush PRN
[2019-05-18] MEDS ORDERED: HYDROmorphone 2 MG/ML, 1ML IVPush PRN
[2019-05-18 01:52] VITALS: BP 103/67
[2019-05-18 05:59] LABS: BASOPHILS # (AUTO) 0.03 x10^3/uL (0-0.1); BASOPHILS % (AUTO) 1 % (0-1); EOSINOPHILS # (AUTO) 0.15 x10^3/uL (0-0.4); EOSINOPHILS % (AUTO) 3 % (1-7); LYMPHOCYTES # (AUTO) 1.12 x10^3/uL (1-3.4); LYMPHOCYTES % (AUTO) 22 % (22-44); MD NO; MEAN CORPUSCULAR HEMOGLOBIN 32.2 pg (27.0-34.8); MEAN CORPUSCULAR VOLUME 97.7 fL (80-100); MEAN PLATELET VOLUME 7.8 fL (7.4-10.4); MONOCYTES # (AUTO) 0.48 x10^3/uL (0.2-0.8); MONOCYTES % (AUTO) 10 % (2-9); NEUTROPHILS # (AUTO) 3.22 x10^3/uL (1.8-6.8); NEUTROPHILS % (AUTO) 64 % (42-75); PLATELET COUNT 193 x10^3/uL (130-400); RED BLOOD COUNT 3.72 x10^6/uL (3.82-5.3); RED CELL DISTRIBUTION WIDTH 14.3 % (9.6-15.2)
[2019-05-18 06:11] LABS: CHLORIDE 93 mmol/L (98-107)
[2019-05-18 06:20] LABS: ANION GAP 7 mmol/L (5-15); CALCIUM 8.2 mg/dL (8.5-10.1); CREATININE 7.81 mg/dL (0.55-1.02)
[2019-05-18 07:44] VITALS: BP 102/64
[2019-05-18 14:02] VITALS: BP 110/75
[2019-05-18] MEDS ORDERED: PROMETHAZINE 25 MG/ML, 1ML IM PRN (14:30)
[2019-05-18 14:54] LABS: CLOSTRIDIUM DIFFICILE ANTIGEN POSITIVE; CLOSTRIDIUM DIFFICILE TOXIN NEGATIVE (Negative)
[2019-05-18] MEDS ORDERED: OXYcodone/APAP 5/325MG TABLET PO PRN (18:30)
[2019-05-18 18:36] VITALS: BP 124/81
[2019-05-18] MEDS: VANCOMYCIN 50 MG/ML ORAL SUSP PO SCH (20:11)
[2019-05-19 00:52] VITALS: BP 120/79
[2019-05-19] MEDS: VANCOMYCIN 50 MG/ML ORAL SUSP PO SCH (01:49)
[2019-05-19 06:14] LABS: BASOPHILS # (AUTO) 0.03 x10^3/uL (0-0.1); BASOPHILS % (AUTO) 1 % (0-1); EOSINOPHILS # (AUTO) 0.15 x10^3/uL (0-0.4); EOSINOPHILS % (AUTO) 3 % (1-7); LYMPHOCYTES # (AUTO) 1.26 x10^3/uL (1-3.4); LYMPHOCYTES % (AUTO) 25 % (22-44); MD NO; MEAN CORPUSCULAR HEMOGLOBIN 31.6 pg (27.0-34.8); MEAN CORPUSCULAR HGB CONC 32.6 g/dL (32.4-35.8); MEAN CORPUSCULAR VOLUME 96.9 fL (80-100); MEAN PLATELET VOLUME 7.5 fL (7.4-10.4); MONOCYTES # (AUTO) 0.43 x10^3/uL (0.2-0.8); MONOCYTES % (AUTO) 9 % (2-9); NEUTROPHILS # (AUTO) 3.23 x10^3/uL (1.8-6.8); NEUTROPHILS % (AUTO) 63 % (42-75); PLATELET COUNT 191 x10^3/uL (130-400); RED BLOOD COUNT 3.58 x10^6/uL (3.82-5.3); RED CELL DISTRIBUTION WIDTH 14.5 % (9.6-15.2)
[2019-05-19 06:27] LABS: CALCIUM 8.3 mg/dL (8.5-10.1); CHLORIDE 94 mmol/L (98-107)
[2019-05-19 06:35] LABS: ALANINE AMINOTRANSFERASE 12 U/L (12-78); ALBUMIN 3.4 g/dL (3.4-5.0); ALKALINE PHOSPHATASE 107 U/L (45-117); ANION GAP 11 mmol/L (5-15); BILIRUBIN,TOTAL 0.6 mg/dL (0.2-1.0); TOTAL PROTEIN 7.3 g/dL (6.4-8.2)
[2019-05-19 08:00] VITALS: BP 99/70
[2019-05-19] MEDS ORDERED: HEPARIN 5,000 UNITS/ML, 1ML SQ SCH (09:00)
== END 2019-05-19 13:36 | disposition left against medical advice (07) | DRG 438 ==
LOC: ED 20:32 → EDIP 21:07 → 4WST 22:35
PROVIDERS: ADMIT Internal Medicine; ATTEND Internal Medicine
PROC: 5A1D70Z Performance of Urinary Filtration, Intermittent, Less than 6 Hours Per Day (ICD-10-PCS; principal; 2019-05-17)
DX: K85.90 Acute pancreatitis without necrosis or infection, unspecified (principal); N18.6 End stage renal disease; I12.0 Hypertensive chronic kidney disease with stage 5 chronic kidney disease or end stage renal disease; E87.1 Hypo-osmolality and hyponatremia; E87.3 Alkalosis; A08.4 Viral intestinal infection, unspecified; K86.1 Other chronic pancreatitis; D63.1 Anemia in chronic kidney disease; E55.9 Vitamin D deficiency, unspecified; E78.5 Hyperlipidemia, unspecified; H66.90 Otitis media, unspecified, unspecified ear; I25.10 Atherosclerotic heart disease of native coronary artery without angina pectoris; M10.9 Gout, unspecified; I70.1 Atherosclerosis of renal artery; K76.0 Fatty (change of) liver, not elsewhere classified; Z82.49 Family history of ischemic heart disease and other diseases of the circulatory system; Z86.19 Personal history of other infectious and parasitic diseases; Z86.73 Personal history of transient ischemic attack (TIA), and cerebral infarction without residual deficits; Z87.891 Personal history of nicotine dependence; Z90.710 Acquired absence of both cervix and uterus; Z98.1 Arthrodesis status; Z99.2 Dependence on renal dialysis
CPT/HCPCS: 36415; 74177; 80048; 80053; 81001; 83605; 83690; 85025; 87324; 87493; 89055; 90935; 96374; 96375; 99285; G0378; J1170; J2405; J2550; J3370; Q9967; J0780; J7030

== ENCOUNTER 2019-06-15 11:46 | Outpatient (CLI) | payer MEDICARE, OTHER ==
[2019-06-15 12:22] LABS: MEAN CORPUSCULAR HEMOGLOBIN 32.2 pg (27.0-34.8); MEAN CORPUSCULAR HGB CONC 33.5 g/dL (32.4-35.8); MEAN CORPUSCULAR VOLUME 95.9 fL (80-100); MEAN PLATELET VOLUME 7.1 fL (7.4-10.4); PLATELET COUNT 198 x10^3/uL (130-400); RED BLOOD COUNT 3.61 x10^6/uL (3.82-5.3); RED CELL DISTRIBUTION WIDTH 14.1 % (9.6-15.2)
[2019-06-15 12:37] LABS: ALANINE AMINOTRANSFERASE 17 U/L (12-78); ALBUMIN 3.3 g/dL (3.4-5.0); ANION GAP 6 mmol/L (5-15); CALCIUM 7.4 mg/dL (8.5-10.1); CHLORIDE 92 mmol/L (98-107); CREATININE 8.76 mg/dL (0.55-1.02)
[2019-06-15 12:38] LABS: ALKALINE PHOSPHATASE 132 U/L (45-117); BILIRUBIN,TOTAL 0.4 mg/dL (0.2-1.0); TOTAL PROTEIN 7.7 g/dL (6.4-8.2)
[2019-06-15 12:44] LABS: BASOPHILS # (AUTO) 0.04 x10^3/uL (0-0.1); BASOPHILS % (AUTO) 1 % (0-1); EOSINOPHILS # (AUTO) 0.17 x10^3/uL (0-0.4); EOSINOPHILS % (AUTO) 4 % (1-7); LYMPHOCYTES # (AUTO) 1.08 x10^3/uL (1-3.4); LYMPHOCYTES % (AUTO) 26 % (22-44); MD SCAN; MONOCYTES # (AUTO) 0.43 x10^3/uL (0.2-0.8); MONOCYTES % (AUTO) 10 % (2-9); NEUTROPHILS # (AUTO) 2.41 x10^3/uL (1.8-6.8); NEUTROPHILS % (AUTO) 59 % (42-75)
== END 2019-06-15 23:59 | disposition home or self-care (01) ==
LOC: LAB 11:46
PROVIDERS: ATTEND Nurse Practitioner Family
DX: Z01.818 Encounter for other preprocedural examination (principal); I13.2 Hypertensive heart and chronic kidney disease with heart failure and with stage 5 chronic kidney disease, or end stage renal disease; I50.43 Acute on chronic combined systolic (congestive) and diastolic (congestive) heart failure; N18.5 Chronic kidney disease, stage 5; Z86.19 Personal history of other infectious and parasitic diseases; Z99.2 Dependence on renal dialysis
CPT/HCPCS: 36415; 80053; 85025

== ENCOUNTER 2019-06-27 13:34 | Inpatient (IN) | payer OTHER, MEDICARE ==
[~2019-06-27] VITALS: Ht 161.3 cm; Wt 67.7 kg
--- NOTE | 2019-06-27 14:26 | NUR ---
PT STATES SHE HAS HAD DIARREA INTERMITTENTLY BUT THIS MORNING SHE AWOKE WITH LARGE AMOUNT OF DIARRHEA AND ABDOMINAL PAIN WITH NAUSEA.
[2019-06-27 14:30] LABS: MEAN CORPUSCULAR HEMOGLOBIN 31.9 pg (27.0-34.8); MEAN CORPUSCULAR HGB CONC 33.2 g/dL (32.4-35.8); MEAN CORPUSCULAR VOLUME 96.3 fL (80-100); MEAN PLATELET VOLUME 7.1 fL (7.4-10.4); PLATELET COUNT 205 x10^3/uL (130-400); RED BLOOD COUNT 3.51 x10^6/uL (3.82-5.3); RED CELL DISTRIBUTION WIDTH 14.1 % (9.6-15.2)
[2019-06-27 14:40] LABS: ALANINE AMINOTRANSFERASE 14 U/L (12-78); ALBUMIN 3.5 g/dL (3.4-5.0); ANION GAP 10 mmol/L (5-15); CALCIUM 7.9 mg/dL (8.5-10.1); CHLORIDE 96 mmol/L (98-107)
[2019-06-27 14:43] LABS: ALKALINE PHOSPHATASE 161 U/L (45-117); BILIRUBIN,TOTAL 0.4 mg/dL (0.2-1.0); TOTAL PROTEIN 7.8 g/dL (6.4-8.2)
[2019-06-27 14:44] LABS: BASOPHILS # (AUTO) 0.03 x10^3/uL (0-0.1); BASOPHILS % (AUTO) 1 % (0-1); EOSINOPHILS # (AUTO) 0.22 x10^3/uL (0-0.4); EOSINOPHILS % (AUTO) 5 % (1-7); LYMPHOCYTES # (AUTO) 1.04 x10^3/uL (1-3.4); LYMPHOCYTES % (AUTO) 23 % (22-44); MD SCAN; MONOCYTES # (AUTO) 0.47 x10^3/uL (0.2-0.8); MONOCYTES % (AUTO) 10 % (2-9); NEUTROPHILS # (AUTO) 2.85 x10^3/uL (1.8-6.8); NEUTROPHILS % (AUTO) 62 % (42-75)
--- NOTE | 2019-06-27 15:48 | NUR ---
PT SPEAKING WITH PT ABOUT POC
[2019-06-27] MEDS ORDERED: SODIUM CHLORIDE 0.9% 1,000 ML IV ONE (15:53)
[2019-06-27] MEDS ORDERED: MORPHINE SULFATE 4 MG/ML, 1ML IVPush PRN ×2 (16:00→17:00)
[2019-06-27] MEDS ORDERED: SODIUM CHLORIDE FLUSH 10ML SYR IVF ONE (16:00)
[2019-06-27] MEDS ORDERED: ONDANSETRON 2MG/ML, 2ML IVPush ONE (16:00)
[2019-06-27] MEDS ORDERED: FAMOTIDINE 20 MG/2 ML IV ONE (16:00)
[2019-06-27] MEDS ORDERED: ONDANSETRON 2MG/ML, 2ML ONE ×2 (16:07→17:09)
[2019-06-27] MEDS ORDERED: FAMOTIDINE 20 MG/2 ML ONE (16:08)
[2019-06-27] MEDS ORDERED: MORPHINE SULFATE 4 MG/ML, 1ML ONE ×2 (16:08→17:17)
--- NOTE | 2019-06-27 16:23 | NUR ---
MEDICATED FOR PAIN AND NAUSEA NOTED ON MAR
--- NOTE | 2019-06-27 16:48 | NUR ---
HOSPITALIST AT [facility]
[2019-06-27] MEDS ORDERED: SODIUM CHLORIDE 0.9% 1,000 ML IV SCH (16:54)
[2019-06-27] MEDS: HEPARIN 5,000 UNITS/ML, 1ML SQ SCH (17:00)
[2019-06-27] MEDS ORDERED: PROMETHAZINE 25MG TABLET PO PRN (17:00)
[2019-06-27] MEDS ORDERED: ONDANSETRON ODT 4 MG PO PRN (17:00)
--- NOTE | 2019-06-27 17:06 | NUR ---
REPORT TO ZHAHA. RAMON TO BE TRANSPORTED TO THE FLOOR.
[2019-06-27] MEDS: ONDANSETRON 2MG/ML, 2ML IVPush PRN (17:13)
--- NOTE | 2019-06-27 17:21 | NUR ---
VOMITED X1 AND C/O LEFT CHEST PAIN RADIATING TO THE BACK. EKG PERFORMED AND SHOWED TO ER MD AND HOSPITALIST. PT DECLINING MORPHINE BECAUSE SHE BELIEVES IT IS MAKING HER NAUSEATED.
--- NOTE | 2019-06-27 17:28 | NUR ---
HOSPITALIST LYNSEY COMPARED EKG TO PREVIOUS AND STATES PT CAN GO TO MEDICAL FLOOR.
--- NOTE | 2019-06-27 17:33 | NUR ---
SPOKE WITH [employer] BECAUSE RADHA NOT AVAILABLE. INFORMED OF N/V CP AND ZOFRAN GIVEN WITH EKG OBTAINED AND OK FROM HOSPITALIST TO GO TO MEDICAL FLOOR. PT TRANSPORTED VIA W/C TO FLOOR BY TECH.
[2019-06-27] MEDS: VANCOMYCIN 50 MG/ML ORAL SUSP PO SCH (18:23)
[2019-06-27] MEDS: SIMVASTATIN 20 MG TABLET PO SCH (20:10)
[2019-06-27] MEDS: TRAZODONE 150MG TABLET PO SCH (20:10)
[2019-06-27] MEDS: LACTOBACILLUS CHEW TABLET PO SCH (20:10)
[2019-06-27 20:19] VITALS: BP 109/70
[2019-06-28] MEDS: VANCOMYCIN 50 MG/ML ORAL SUSP PO SCH ×4 (00:13→18:11)
[2019-06-28] MEDS: OXYcodone IR 5MG TABLET PO PRN ×3 (00:17→12:15)
[2019-06-28] MEDS: HEPARIN 5,000 UNITS/ML, 1ML SQ SCH ×3 (00:19→16:09)
[2019-06-28 01:46] VITALS: BP 92/60
[2019-06-28 07:12] VITALS: BP 93/58
[2019-06-28 07:19] LABS: BASOPHILS # (AUTO) 0.07 x10^3/uL (0-0.1); BASOPHILS % (AUTO) 2 % (0-1); EOSINOPHILS # (AUTO) 0.13 x10^3/uL (0-0.4); EOSINOPHILS % (AUTO) 3 % (1-7); LYMPHOCYTES # (AUTO) 1.18 x10^3/uL (1-3.4); LYMPHOCYTES % (AUTO) 29 % (22-44); MD NO; MEAN CORPUSCULAR HEMOGLOBIN 32.5 pg (27.0-34.8); MEAN CORPUSCULAR HGB CONC 33.9 g/dL (32.4-35.8); MEAN CORPUSCULAR VOLUME 95.8 fL (80-100); MEAN PLATELET VOLUME 7.6 fL (7.4-10.4); MONOCYTES % (AUTO) 7 % (2-9); NEUTROPHILS # (AUTO) 2.39 x10^3/uL (1.8-6.8); NEUTROPHILS % (AUTO) 59 % (42-75); PLATELET COUNT 186 x10^3/uL (130-400); RED BLOOD COUNT 3.14 x10^6/uL (3.82-5.3)
[2019-06-28 07:26] LABS: CALCIUM 7.6 mg/dL (8.5-10.1)
[2019-06-28 07:54] LABS: ANION GAP 10 mmol/L (5-15); CHLORIDE 99 mmol/L (98-107)
[2019-06-28] MEDS: LACTOBACILLUS CHEW TABLET PO SCH ×3 (09:09→21:49)
[2019-06-28 13:06] VITALS: BP 115/75
[2019-06-28] MEDS: ONDANSETRON 2MG/ML, 2ML IVPush PRN (15:09)
[2019-06-28] MEDS ORDERED: PROMETHAZINE 25 MG/ML, 1ML IM PRN (18:00)
[2019-06-28 20:16] VITALS: BP 107/66
[2019-06-28] MEDS: TRAZODONE 150MG TABLET PO SCH (21:49)
[2019-06-28] MEDS: SIMVASTATIN 20 MG TABLET PO SCH (21:49)
[2019-06-28] MEDS: ACETAMINOPHEN 325 MG TABLET PO PRN (22:01)
[2019-06-29] MEDS: HEPARIN 5,000 UNITS/ML, 1ML SQ SCH ×3 (00:36→16:18)
[2019-06-29] MEDS: VANCOMYCIN 50 MG/ML ORAL SUSP PO SCH ×5 (00:36→23:56)
[2019-06-29 01:56] VITALS: BP 107/69
[2019-06-29 05:35] LABS: BASOPHILS # (AUTO) 0.05 x10^3/uL (0-0.1); BASOPHILS % (AUTO) 1 % (0-1); EOSINOPHILS # (AUTO) 0.15 x10^3/uL (0-0.4); EOSINOPHILS % (AUTO) 3 % (1-7); LYMPHOCYTES % (AUTO) 30 % (22-44); MD NO; MEAN CORPUSCULAR HEMOGLOBIN 31.6 pg (27.0-34.8); MEAN CORPUSCULAR HGB CONC 32.8 g/dL (32.4-35.8); MEAN CORPUSCULAR VOLUME 96.3 fL (80-100); MEAN PLATELET VOLUME 7.3 fL (7.4-10.4); MONOCYTES # (AUTO) 0.38 x10^3/uL (0.2-0.8); MONOCYTES % (AUTO) 9 % (2-9); NEUTROPHILS # (AUTO) 2.51 x10^3/uL (1.8-6.8); NEUTROPHILS % (AUTO) 57 % (42-75); PLATELET COUNT 190 x10^3/uL (130-400); RED BLOOD COUNT 3.29 x10^6/uL (3.82-5.3); RED CELL DISTRIBUTION WIDTH 13.9 % (9.6-15.2)
[2019-06-29 05:38] LABS: ANION GAP 6 mmol/L (5-15); CALCIUM 7.9 mg/dL (8.5-10.1); CHLORIDE 102 mmol/L (98-107)
[2019-06-29 07:44] VITALS: BP 117/74
[2019-06-29] MEDS: LACTOBACILLUS CHEW TABLET PO SCH ×3 (09:24→20:13)
[2019-06-29 12:12] VITALS: BP 121/79
[2019-06-29 19:44] VITALS: BP 109/72
[2019-06-29] MEDS: TRAZODONE 150MG TABLET PO SCH (20:13)
[2019-06-29] MEDS: SIMVASTATIN 20 MG TABLET PO SCH (20:14)
[2019-06-29] MEDS: ACETAMINOPHEN 325 MG TABLET PO PRN (23:56)
[2019-06-30] MEDS: HEPARIN 5,000 UNITS/ML, 1ML SQ SCH ×3 (01:00→17:00)
[2019-06-30 01:49] VITALS: BP 104/66
[2019-06-30] MEDS: VANCOMYCIN 50 MG/ML ORAL SUSP PO SCH ×2 (05:35→13:04)
[2019-06-30] MEDS ORDERED: ASPIRIN 81 MG TABLET EC PO SCH (06:00)
[2019-06-30 07:39] VITALS: BP 111/75
[2019-06-30] MEDS ORDERED: VANC1VIA3 PO (08:01)
[2019-06-30] MEDS: LACTOBACILLUS CHEW TABLET PO SCH ×2 (08:19→16:00)
[2019-06-30 12:50] VITALS: BP 102/66
[2019-06-30] MEDS: ACETAMINOPHEN 325 MG TABLET PO PRN (14:32)
[2019-06-30 14:44] LABS: BASOPHILS # (AUTO) 0.04 x10^3/uL (0-0.1); BASOPHILS % (AUTO) 1 % (0-1); EOSINOPHILS # (AUTO) 0.18 x10^3/uL (0-0.4); EOSINOPHILS % (AUTO) 5 % (1-7); LYMPHOCYTES # (AUTO) 0.97 x10^3/uL (1-3.4); LYMPHOCYTES % (AUTO) 27 % (22-44); MD NO; MEAN CORPUSCULAR HEMOGLOBIN 32.1 pg (27.0-34.8); MEAN CORPUSCULAR VOLUME 94.6 fL (80-100); MEAN PLATELET VOLUME 7.8 fL (7.4-10.4); MONOCYTES % (AUTO) 11 % (2-9); NEUTROPHILS # (AUTO) 2.07 x10^3/uL (1.8-6.8); NEUTROPHILS % (AUTO) 57 % (42-75); PLATELET COUNT 186 x10^3/uL (130-400); RED BLOOD COUNT 3.14 x10^6/uL (3.82-5.3); RED CELL DISTRIBUTION WIDTH 14.2 % (9.6-15.2)
[2019-06-30 14:46] LABS: ANION GAP 8 mmol/L (5-15); CALCIUM 7.4 mg/dL (8.5-10.1); CHLORIDE 102 mmol/L (98-107)
== END 2019-06-30 18:02 | disposition home or self-care (01) | DRG 438 ==
LOC: ED 14:03 → EDIP 16:27 → 3N 17:36
PROVIDERS: ADMIT Emergency Medicine; ATTEND Family Medicine
PROC: 5A1D70Z Performance of Urinary Filtration, Intermittent, Less than 6 Hours Per Day (ICD-10-PCS; principal; 2019-06-28)
PROC: 5A1D70Z Performance of Urinary Filtration, Intermittent, Less than 6 Hours Per Day (ICD-10-PCS; 2019-06-30)
DX: K85.90 Acute pancreatitis without necrosis or infection, unspecified (principal); N18.6 End stage renal disease; I12.0 Hypertensive chronic kidney disease with stage 5 chronic kidney disease or end stage renal disease; K86.1 Other chronic pancreatitis; D63.1 Anemia in chronic kidney disease; E78.5 Hyperlipidemia, unspecified; G47.00 Insomnia, unspecified; G89.29 Other chronic pain; I25.10 Atherosclerotic heart disease of native coronary artery without angina pectoris; I70.1 Atherosclerosis of renal artery; M10.9 Gout, unspecified; M47.9 Spondylosis, unspecified; Z82.49 Family history of ischemic heart disease and other diseases of the circulatory system; Z86.73 Personal history of transient ischemic attack (TIA), and cerebral infarction without residual deficits; Z90.710 Acquired absence of both cervix and uterus; Z98.1 Arthrodesis status; Z99.2 Dependence on renal dialysis
CPT/HCPCS: 36415; J3370; J3490; 80048; 80053; 83605; 83690; 85025; 90935; 93005; 96361; 96374; 96375; 99285; G0378; J2405; J2550; J2270; J7030

== ENCOUNTER 2019-07-06 14:01 | Outpatient (CLI) | payer MEDICARE, OTHER ==
[~2019-07-06 14:01] MED LIST changes: -TRAZ-137 PO; +TRAZ-175 PO
== END 2019-07-06 23:59 | disposition home or self-care (01) ==
LOC: CFH 14:01
PROVIDERS: ATTEND Nurse Practitioner Family
DX: Z12.31 Encounter for screening mammogram for malignant neoplasm of breast (principal); N64.89 Other specified disorders of breast
CPT/HCPCS: 77067

== ENCOUNTER 2019-08-13 21:28 | Emergency (ER) | payer OTHER, MEDICARE ==
[~2019-08-13] VITALS: Ht 160 cm; Wt 67.7 kg
--- NOTE | 2019-08-13 22:32 | NUR ---
PT UP TO RR WITH STEADY GAIT
[2019-08-13] MEDS ORDERED: ACET325T14 PO (22:38)
--- NOTE | 2019-08-13 22:42 | NUR ---
URINE SAMPLE TAKEN TO LAB
[2019-08-13 22:50] LABS: CULTURE INDICATED? YES; MICROSCOPIC AUTO
[2019-08-13] MEDS ORDERED: ONDANSETRON 2MG/ML, 2ML ONE (22:57)
[2019-08-13] MEDS ORDERED: MORPHINE SULFATE 4 MG/ML, 1ML ONE (22:57)
[2019-08-13] MEDS ORDERED: ONDANSETRON 2MG/ML, 2ML IVPush ONE (23:00)
[2019-08-13] MEDS ORDERED: SODIUM CHLORIDE FLUSH 10ML SYR IVF ONE ×2 (23:00)
[2019-08-13] MEDS ORDERED: MORPHINE SULFATE 4 MG/ML, 1ML IVPush PRN (23:00)
--- NOTE | 2019-08-13 23:06 | NUR ---
PT MEDICATED PER MAR
[2019-08-13 23:13] LABS: BASOPHILS # (AUTO) 0.02 x10^3/uL (0-0.1); BASOPHILS % (AUTO) 0 % (0-1); EOSINOPHILS # (AUTO) 0.16 x10^3/uL (0-0.4); EOSINOPHILS % (AUTO) 2 % (1-7); LYMPHOCYTES # (AUTO) 1.19 x10^3/uL (1-3.4); LYMPHOCYTES % (AUTO) 18 % (22-44); MD NO; MEAN CORPUSCULAR HEMOGLOBIN 31.9 pg (27.0-34.8); MEAN CORPUSCULAR VOLUME 93.6 fL (80-100); MONOCYTES # (AUTO) 0.67 x10^3/uL (0.2-0.8); MONOCYTES % (AUTO) 10 % (2-9); NEUTROPHILS % (AUTO) 70 % (42-75); PLATELET COUNT 268 x10^3/uL (130-400); RED BLOOD COUNT 3.98 x10^6/uL (3.82-5.3); RED CELL DISTRIBUTION WIDTH 13.7 % (9.6-15.2)
[2019-08-13 23:15] LABS: ALANINE AMINOTRANSFERASE 27 U/L (12-78); ALBUMIN 3.7 g/dL (3.4-5.0); ANION GAP 8 mmol/L (5-15); CALCIUM 7.6 mg/dL (8.5-10.1); CHLORIDE 90 mmol/L (98-107); CREATININE 6.57 mg/dL (0.55-1.02)
[2019-08-13 23:20] LABS: ALKALINE PHOSPHATASE 205 U/L (45-117); BILIRUBIN,TOTAL 0.3 mg/dL (0.2-1.0); TOTAL PROTEIN 8.8 g/dL (6.4-8.2)
[2019-08-14 00:21] VITALS: BP 108/74
== END 2019-08-14 00:35 | disposition home or self-care (01) ==
LOC: ED 23:41
DX: K85.00 Idiopathic acute pancreatitis without necrosis or infection (principal); R10.13 Epigastric pain; I12.0 Hypertensive chronic kidney disease with stage 5 chronic kidney disease or end stage renal disease; N18.6 End stage renal disease; Z99.2 Dependence on renal dialysis; Z87.891 Personal history of nicotine dependence
CPT/HCPCS: 36415; 80053; 81001; 83690; 84703; 85025; 87086; 93005; 96374; 96375; 99284; J2270; J2405; 87147

== ENCOUNTER → 2020-02-08 | Outpatient (CLI) | payer OTHER, MEDICARE ==
[~2020-02-08] MED LIST changes: +ACET325T14 PO; +GADOTERATE 5 MMOL/10 ML VIAL ONE
== END | disposition home or self-care (01) ==
LOC: RAD 12:30
PROVIDERS: ATTEND Nurse Practitioner Family
DX: N28.1 Cyst of kidney, acquired (principal); K86.89 Other specified diseases of pancreas; M43.26 Fusion of spine, lumbar region; K86.1 Other chronic pancreatitis
CPT/HCPCS: 74183; A9575

== ENCOUNTER 2020-03-02 21:49 | Inpatient (IN) | payer MEDICARE, OTHER ==
[~2020-03-02] VITALS: Ht 161.3 cm; Wt 68.2 kg
[~2020-03-02 21:49] MED LIST changes: -ENAL10TA PO; +ENAL10TA9 PO; -GADOTERATE 5 MMOL/10 ML VIAL ONE
[2020-03-02] MEDS ORDERED: ONDANSETRON 2MG/ML, 2ML IVPush ONE (22:00)
[2020-03-02] MEDS ORDERED: SODIUM CHLORIDE FLUSH 10ML SYR IVF ONE (22:00)
[2020-03-02] MEDS ORDERED: SODIUM CHLORIDE 0.9% 1,000ML IVBOLUS ONE (22:00)
[2020-03-02] MEDS ORDERED: MORPHINE SULFATE 4 MG/ML, 1ML IVPush PRN (22:00)
[2020-03-02 22:31] LABS: MEAN CORPUSCULAR HEMOGLOBIN 30.8 pg (27.0-34.8); MEAN CORPUSCULAR VOLUME 93.2 fL (80-100); MEAN PLATELET VOLUME 7.6 fL (7.4-10.4); PLATELET COUNT 210 x10^3/uL (130-400); RED BLOOD COUNT 3.65 x10^6/uL (3.82-5.3); RED CELL DISTRIBUTION WIDTH 13.3 % (9.6-15.2)
[2020-03-02] MEDS ORDERED: ONDANSETRON 2MG/ML, 2ML ONE (22:36)
[2020-03-02] MEDS ORDERED: MORPHINE SULFATE 4 MG/ML, 1ML ONE (22:37)
[2020-03-02 22:38] LABS: ALANINE AMINOTRANSFERASE 12 U/L (12-78); ALBUMIN 3.4 g/dL (3.4-5.0); ANION GAP 11 mmol/L (5-15); CHLORIDE 101 mmol/L (98-107); CREATININE 9.71 mg/dL (0.55-1.02)
[2020-03-02 22:42] LABS: ALKALINE PHOSPHATASE 124 U/L (45-117); BILIRUBIN,TOTAL 0.3 mg/dL (0.2-1.0)
--- NOTE | 2020-03-02 22:44 | NUR ---
PT HERE FOR RUQ PAIN. HX OF PANCREATITIS. PIV PLACED. PT MEDICATED FOR NAUSEA AND PAIN AND FLUIDS RUNNING. CALL LIGHT IN REACH
[2020-03-02 22:45] LABS: MD YES
[2020-03-02 22:50] LABS: <PLATELET ESTIMATE> ADEQUATE; <PLT MORPHOLOGY> NORMAL PLT MORPH; <RBC MORPHOLOGY> NORMAL; BASOS#(MANUAL) 0.11 x10^3/uL (0-0.1); BASOS% (MANUAL) 2 % (0-1); EOS#(MANUAL) 0.23 x10^3/uL (0.0-0.4); EOS% (MANUAL) 4 % (1-7); LYMPH#(MANUAL) 1.31 x10^3/uL (1-3.4); LYMPHS% (MANUAL) 23 % (22-44); MONOS#(MANUAL) 0.23 x10^3/uL (0.3-2.7); MONOS% (MANUAL) 4 % (2-9); SEG#(MANUAL) 3.82 x10^3/uL (1.8-6.8); SEGS% (MANUAL) 67 % (42-75)
[2020-03-02] MEDS ORDERED: SODIUM CHLORIDE 0.9% 1,000 ML IV ONE (23:55)
[2020-03-03] MEDS ORDERED: ONDANSETRON 2MG/ML, 2ML IVPush PRN
[2020-03-03] MEDS ORDERED: HYDROmorphone 1 MG/ML, 1ML INJ IVPush ONE
[2020-03-03] MEDS ORDERED: HYDROmorphone 1 MG/ML, 1ML INJ IVPush PRN
[2020-03-03] MEDS ORDERED: HYDROmorphone 1 MG/ML, 1ML INJ ONE ×2 (00:01→03:15)
[2020-03-03] MEDS ORDERED: BIOT5TAB PO (00:09)
[2020-03-03] MEDS ORDERED: CALC-680 PO (00:09)
[2020-03-03] MEDS ORDERED: PANT40TA3 PO (00:09)
--- NOTE | 2020-03-03 00:10 | NUR ---
PT REMEDICATED FOR PAIN. VSS. PT TO BE ADMITTED. MED REC COMPLETED. CALL LIGHT IN REACH
[2020-03-03] MEDS ORDERED: morphine SULFATE 10 MG/ML, 1ML IVPush PRN (00:30)
[2020-03-03] MEDS ORDERED: BISACODYL 10 MG SUPP PR PRN (00:30)
[2020-03-03] MEDS ORDERED: POLYETHYLENE GLYCOL 17 GM PACKET PO PRN (00:30)
[2020-03-03] MEDS ORDERED: HEPARIN 5,000 UNITS/ML, 1ML ONE (03:15)
[2020-03-03] MEDS: HEPARIN 5,000 UNITS/ML, 1ML SQ SCH ×3 (03:20→16:57)
--- NOTE | 2020-03-03 03:28 | NUR ---
PT REMEDICATED FOR PAIN. VSS. CALL LIGHT IN REACH
[2020-03-03 04:26] VITALS: BP 127/84
[2020-03-03 07:31] LABS: BASOPHILS # (AUTO) 0.03 x10^3/uL (0-0.1); BASOPHILS % (AUTO) 1 % (0-1); EOSINOPHILS # (AUTO) 0.08 x10^3/uL (0-0.4); EOSINOPHILS % (AUTO) 1 % (1-7); LYMPHOCYTES % (AUTO) 12 % (22-44); MD NO; MEAN CORPUSCULAR HEMOGLOBIN 30.2 pg (27.0-34.8); MEAN CORPUSCULAR HGB CONC 32.5 g/dL (32.4-35.8); MEAN CORPUSCULAR VOLUME 92.8 fL (80-100); MEAN PLATELET VOLUME 7.7 fL (7.4-10.4); MONOCYTES # (AUTO) 0.32 x10^3/uL (0.2-0.8); MONOCYTES % (AUTO) 5 % (2-9); NEUTROPHILS # (AUTO) 5.22 x10^3/uL (1.8-6.8); NEUTROPHILS % (AUTO) 81 % (42-75); PLATELET COUNT 169 x10^3/uL (130-400); RED BLOOD COUNT 3.57 x10^6/uL (3.82-5.3)
[2020-03-03 07:33] LABS: MICROSCOPIC AUTO
[2020-03-03 07:40] LABS: ANION GAP 9 mmol/L (5-15); CALCIUM 9.5 mg/dL (8.5-10.1); CHLORIDE 104 mmol/L (98-107)
[2020-03-03] MEDS ORDERED: SODIUM CHLORIDE 0.9% 1,000 ML IV SCH (08:30)
[2020-03-03 08:41] VITALS: BP 106/73
[2020-03-03] MEDS: ONDANSETRON 2MG/ML, 2ML IVPush PRN ×2 (08:53→20:13)
[2020-03-03] MEDS: BIOTIN 5 MG PO SCH (09:00)
[2020-03-03] MEDS: SENNA/DOCUSATE TABLET PO SCH (09:00)
[2020-03-03] MEDS: PANTOPRAZOLE 40MG TABLET PO SCH (09:03)
[2020-03-03] MEDS: SODIUM CHLORIDE FLUSH 10ML SYR IVF SCH ×2 (09:05→20:15)
[2020-03-03] MEDS: HYDROmorphone 1 MG/ML, 1ML INJ IV PRN ×3 (09:56→20:14)
[2020-03-03] MEDS: CALCIUM CITRATE 950 MG TABLET PO SCH (09:56)
[2020-03-03] MEDS ORDERED: LEVOFLOXACIN/PMX 750MG/150ML 150 ML IV SCH (12:30)
[2020-03-03] MEDS: PROMETHAZINE 25 MG/ML, 1ML IM PRN ×2 (12:31→17:40)
[2020-03-03] MEDS: CEFTRIAXONE PMX 1GM/50ML 50 ML IV SCH (12:53)
[2020-03-03 13:15] VITALS: BP 116/72
[2020-03-03 18:33] VITALS: BP 122/76
[2020-03-03] MEDS ORDERED: LORazepam 2 MG/ML, 1ML IVPush ONE (20:00)
[2020-03-03] MEDS: TRAZODONE 150MG TABLET PO SCH (20:14)
[2020-03-03] MEDS: LORazepam 0.5MG TABLET PO PRN (20:14)
[2020-03-04 00:51] VITALS: BP 130/87
[2020-03-04] MEDS: HYDROmorphone 1 MG/ML, 1ML INJ IV PRN ×3 (04:21→17:21)
[2020-03-04] MEDS: HEPARIN 5,000 UNITS/ML, 1ML SQ SCH ×2 (04:21→17:19)
[2020-03-04] MEDS: ONDANSETRON 2MG/ML, 2ML IVPush PRN (04:22)
[2020-03-04] MEDS: SENNA/DOCUSATE TABLET PO SCH (08:32)
[2020-03-04] MEDS: PANTOPRAZOLE 40MG TABLET PO SCH (08:33)
[2020-03-04] MEDS: CALCIUM CITRATE 950 MG TABLET PO SCH (08:33)
[2020-03-04] MEDS: PROMETHAZINE 25 MG/ML, 1ML IM PRN ×2 (08:36→17:22)
[2020-03-04] MEDS: SODIUM CHLORIDE FLUSH 10ML SYR IVF SCH ×2 (08:44→20:45)
[2020-03-04] MEDS: BIOTIN 5 MG PO SCH (08:50)
[2020-03-04 09:00] VITALS: BP 135/94
[2020-03-04 09:20] LABS: ANION GAP 11 mmol/L (5-15); CALCIUM 10.1 mg/dL (8.5-10.1); CHLORIDE 106 mmol/L (98-107)
[2020-03-04] MEDS: CEFTRIAXONE PMX 1GM/50ML 50 ML IV SCH (12:57)
[2020-03-04] MEDS: OXYcodone IR 5MG TABLET PO PRN ×2 (12:57→20:18)
[2020-03-04 13:31] VITALS: BP 104/70
[2020-03-04 19:32] VITALS: BP 107/55
[2020-03-04] MEDS: LORazepam 0.5MG TABLET PO PRN (20:18)
[2020-03-04] MEDS: TRAZODONE 150MG TABLET PO SCH (20:18)
[2020-03-05 00:55] VITALS: BP 101/66
[2020-03-05] MEDS: HYDROmorphone 1 MG/ML, 1ML INJ IV PRN ×2 (01:17→06:48)
[2020-03-05] MEDS: ONDANSETRON 2MG/ML, 2ML IVPush PRN (01:17)
[2020-03-05] MEDS: HEPARIN 5,000 UNITS/ML, 1ML SQ SCH (05:19)
[2020-03-05] MEDS: OXYcodone IR 5MG TABLET PO PRN (05:20)
[2020-03-05] MEDS: LORazepam 0.5MG TABLET PO PRN (05:20)
[2020-03-05] MEDS: SENNA/DOCUSATE TABLET PO SCH (08:08)
[2020-03-05] MEDS: PANTOPRAZOLE 40MG TABLET PO SCH (08:08)
[2020-03-05] MEDS: CALCIUM CITRATE 950 MG TABLET PO SCH (08:08)
[2020-03-05] MEDS: SODIUM CHLORIDE FLUSH 10ML SYR IVF SCH (08:12)
[2020-03-05] MEDS: BIOTIN 5 MG PO SCH (09:00)
[2020-03-05] MEDS: PROMETHAZINE 25 MG/ML, 1ML IM PRN (09:03)
[2020-03-05 09:12] VITALS: BP 110/74
[2020-03-05] MEDS ORDERED: CEFD300C37 PO (09:31)
[2020-03-05] MEDS ORDERED: OXYC5TAB3 PO (09:31)
[2020-03-05] MEDS ORDERED: PROM25TA10 PO (09:31)
== END 2020-03-05 10:43 | disposition home or self-care (01) | DRG 438 ==
LOC: ED 03-03 00:01 → EDIP 03-03 01:07 → 4WST 03-03 04:15 → DCLOUNGE 03-05 10:32
PROVIDERS: ADMIT Student in an Organized Health Care Education/Training Program; ATTEND Hospitalist
DX: K85.00 Idiopathic acute pancreatitis without necrosis or infection (principal); N18.6 End stage renal disease; I12.0 Hypertensive chronic kidney disease with stage 5 chronic kidney disease or end stage renal disease; N39.0 Urinary tract infection, site not specified; I70.1 Atherosclerosis of renal artery; M10.9 Gout, unspecified; K86.1 Other chronic pancreatitis; D63.1 Anemia in chronic kidney disease; E87.70 Fluid overload, unspecified; F41.9 Anxiety disorder, unspecified; Z82.49 Family history of ischemic heart disease and other diseases of the circulatory system; Z83.3 Family history of diabetes mellitus; Z86.73 Personal history of transient ischemic attack (TIA), and cerebral infarction without residual deficits; Z87.891 Personal history of nicotine dependence; Z99.2 Dependence on renal dialysis
CPT/HCPCS: 36415; 74176; 80048; 80053; 81001; 83690; 84703; 85025; 87086; 90935; G0378; J0696; J1170; J1644; J2405; J2550; J2060; J2270; J7030

== ENCOUNTER 2020-03-15 10:09 | Emergency (ER) | payer MEDICARE, OTHER ==
[~2020-03-15] VITALS: Ht 160 cm; Wt 66.1 kg
[~2020-03-15 10:09] MED LIST changes: +BIOT5TAB PO; +CALC-680 PO; +CEFD300C37 PO; +PANT40TA3 PO
[2020-03-15] MEDS ORDERED: ONDANSETRON 2MG/ML, 2ML ONE ×2 (10:42→15:49)
[2020-03-15] MEDS ORDERED: MORPHINE SULFATE 4 MG/ML, 1ML ONE ×2 (10:42→15:49)
--- NOTE | 2020-03-15 10:54 | NUR ---
Morphine held until BP improves. ERP aware.
[2020-03-15] MEDS ORDERED: ONDANSETRON 2MG/ML, 2ML IVPush ONE ×2 (11:00→16:00)
[2020-03-15] MEDS ORDERED: SODIUM CHLORIDE FLUSH 10ML SYR IVF ONE (11:00)
[2020-03-15] MEDS ORDERED: SODIUM CHLORIDE 0.9% 1,000ML IVBOLUS ONE (11:00)
--- NOTE | 2020-03-15 11:05 | NUR ---
Pt here for epigastric pain, BIB [facility] from [facility]. Recent hospitalization for pancreatitis. Arrives with low BP.
[2020-03-15 11:10] LABS: BASOPHILS # (AUTO) 0.02 x10^3/uL (0-0.1); BASOPHILS % (AUTO) 1 % (0-1); EOSINOPHILS # (AUTO) 0.08 x10^3/uL (0-0.4); EOSINOPHILS % (AUTO) 2 % (1-7); LYMPHOCYTES # (AUTO) 0.61 x10^3/uL (1-3.4); LYMPHOCYTES % (AUTO) 15 % (22-44); MD NO; MEAN CORPUSCULAR HEMOGLOBIN 30.4 pg (27.0-34.8); MEAN CORPUSCULAR HGB CONC 32.8 g/dL (32.4-35.8); MEAN PLATELET VOLUME 7.4 fL (7.4-10.4); MONOCYTES # (AUTO) 0.24 x10^3/uL (0.2-0.8); MONOCYTES % (AUTO) 6 % (2-9); NEUTROPHILS # (AUTO) 3.12 x10^3/uL (1.8-6.8); NEUTROPHILS % (AUTO) 77 % (42-75); PLATELET COUNT 193 x10^3/uL (130-400); RED BLOOD COUNT 3.98 x10^6/uL (3.82-5.3)
--- NOTE | 2020-03-15 11:10 | NUR ---
Medicated for nausea
[2020-03-15 11:20] LABS: ALANINE AMINOTRANSFERASE 14 U/L (12-78); ALBUMIN 3.6 g/dL (3.4-5.0); ANION GAP 5 mmol/L (5-15); CALCIUM 10.1 mg/dL (8.5-10.1); CHLORIDE 97 mmol/L (98-107); CREATININE 6.24 mg/dL (0.55-1.02)
[2020-03-15 11:22] LABS: ALKALINE PHOSPHATASE 80 U/L (45-117); BILIRUBIN,TOTAL 0.4 mg/dL (0.2-1.0); TOTAL PROTEIN 8.3 g/dL (6.4-8.2)
--- NOTE | 2020-03-15 11:31 | NUR ---
Pt continues to have low BP, 500cc bolus infusing.
[2020-03-15] MEDS ORDERED: MAALOX/HYOSCYAMINE/LIDOCAINE 45 ML BTL PO ONE (12:00)
[2020-03-15] MEDS ORDERED: SODIUM CHLORIDE 0.9%, 500ML IVBOLUS ONE (12:00)
[2020-03-15] MEDS ORDERED: MAALOX/HYOSCYAMINE/LIDOCAINE 45 ML BTL ONE (12:04)
--- NOTE | 2020-03-15 12:13 | NUR ---
BP improving, 2nd bolus infusing. Unable to tolerate GI cocktail, pt vomiting.
[2020-03-15] MEDS: MORPHINE SULFATE 4 MG/ML, 1ML IVPush PRN ×2 (12:42→15:53)
--- NOTE | 2020-03-15 12:44 | NUR ---
task RN note: pt medicated with 2 mg morphine per emar for 10/10 epigastric pain, other half of dose wasted by RN Anoop. BP improved, 2nd 500cc bolus infusing. pt a&o, resps even and unlabored. no vomiting at this time.
--- NOTE | 2020-03-15 13:09 | NUR ---
Pt states improved pain
--- NOTE | 2020-03-15 13:41 | NUR ---
Pt resting, nausea resolved, pain "a little better".
--- NOTE | 2020-03-15 14:35 | NUR ---
TASK RN, COVERING MEAL BREAK. URINE COLLECTED/SENT TO LAB. ALL QUESTIONS FROM PT ANSWERED. CALL LIGHT WITHIN REACH.
[2020-03-15 14:51] LABS: MICROSCOPIC INDICATED
--- NOTE | 2020-03-15 14:59 | NUR ---
PT TO CT
--- NOTE | 2020-03-15 15:31 | NUR ---
pt back from ct, request for nausea medication.
[2020-03-15] MEDS ORDERED: OMNIPAQUE 350 MG/ML, 100ML BOTTLE ONE (15:46)
--- NOTE | 2020-03-15 15:57 | NUR ---
Medicated fr nausea and pain
[2020-03-15 17:20] VITALS: BP 99/58
== END 2020-03-15 17:23 | disposition home or self-care (01) ==
LOC: ED 11:14
DX: R10.13 Epigastric pain (principal); R10.12 Left upper quadrant pain; R10.32 Left lower quadrant pain; R11.2 Nausea with vomiting, unspecified; I12.9 Hypertensive chronic kidney disease with stage 1 through stage 4 chronic kidney disease, or unspecified chronic kidney disease; N18.4 Chronic kidney disease, stage 4 (severe)
CPT/HCPCS: 36415; 74177; 80053; 81001; 83690; 85025; 96361; 96374; 96375; 96376; 99285; J2270; J2405; J7030; J7040; Q9967

== ENCOUNTER → 2020-05-31 | Outpatient (CLI) | payer MEDICARE, MEDICAID ==
[~2020-05-31] MED LIST changes: +HYDR-3653 PO; +LEVO50TA91 PO
[2020-05-31 14:34] LABS: BASOPHILS % (AUTO) 1 % (0-1); EOSINOPHILS % (AUTO) 3 % (1-7); LYMPHOCYTES % (AUTO) 16 % (22-44); MEAN CORPUSCULAR HGB CONC 33.5 g/dL (32.4-35.8); MEAN PLATELET VOLUME 7.8 fL (7.4-10.4); MONOCYTES % (AUTO) 13 % (2-9); NEUTROPHILS % (AUTO) 67 % (42-75); PLATELET COUNT 226 x10^3/uL (130-400); RED BLOOD COUNT 3.69 x10^6/uL (3.82-5.3); RED CELL DISTRIBUTION WIDTH 13.4 % (9.6-15.2)
[2020-05-31 14:34] LABS: MICROSCOPIC INDICATED
[2020-05-31 14:37] LABS: MD NO
[2020-05-31 14:42] LABS: ALANINE AMINOTRANSFERASE 12 U/L (12-78); ALBUMIN 3.5 g/dL (3.4-5.0); ANION GAP 4 mmol/L (5-15); CALCIUM 9.5 mg/dL (8.5-10.1); CHLORIDE 97 mmol/L (98-107); CREATININE 5.55 mg/dL (0.55-1.02)
[2020-05-31 14:44] LABS: ALKALINE PHOSPHATASE 94 U/L (45-117); BILIRUBIN,TOTAL 0.5 mg/dL (0.2-1.0); TOTAL PROTEIN 8.4 g/dL (6.4-8.2)
[2020-05-31 15:16] LABS: PROTHROMBIN TIME 10.6 Seconds (9.6-11.5)
== END | disposition home or self-care (01) ==
LOC: STAR 12:50
PROVIDERS: ATTEND Internal Medicine Geriatric Medicine
DX: Z01.812 Encounter for preprocedural laboratory examination (principal); Z20.828 Contact with and (suspected) exposure to other viral communicable diseases; R10.30 Lower abdominal pain, unspecified; R10.13 Epigastric pain; I44.0 Atrioventricular block, first degree
CPT/HCPCS: 80053; 81001; 85025; 85610; 85730; 87077; 87086; 87186; 87635; 93005

== ENCOUNTER 2020-06-19 06:57 | Emergency (ER) | payer MEDICARE, MEDICAID, OTHER ==
[~2020-06-19] VITALS: Ht 160 cm; Wt 68.5 kg
[2020-06-19] MEDS ORDERED: HYDROcodone/APAP 5/325 TABLET ONE (07:07)
--- NOTE | 2020-06-19 07:28 | NUR ---
PT TO XR
[2020-06-19] MEDS ORDERED: HYDROcodone/APAP 5/325 TABLET PO PRN (07:30)
[2020-06-19 08:51] VITALS: BP 136/86
--- NOTE | 2020-06-19 08:53 | NUR ---
Patient given discharge instructions and they have confirmed that they understand the instructions. Patient ambulatory with steady gait.
== END 2020-06-19 09:42 | disposition home or self-care (01) ==
LOC: ED 08:52
DX: G89.11 Acute pain due to trauma (principal); M54.6 Pain in thoracic spine; R07.89 Other chest pain; I12.9 Hypertensive chronic kidney disease with stage 1 through stage 4 chronic kidney disease, or unspecified chronic kidney disease; N18.4 Chronic kidney disease, stage 4 (severe); I44.0 Atrioventricular block, first degree; Z87.891 Personal history of nicotine dependence; V49.49XA Driver injured in collision with other motor vehicles in traffic accident, initial encounter; Y93.89 Activity, other specified; Y92.410 Unspecified street and highway as the place of occurrence of the external cause; Y99.8 Other external cause status
CPT/HCPCS: 71046; 93005; 99283

== ENCOUNTER → 2020-06-20 | Outpatient (CLI) | payer MEDICARE, MEDICAID | END | disposition home or self-care (01) | LOC: CVU 12:10 | PROVIDERS: ATTEND Nurse Practitioner Family | DX: I36.1 Nonrheumatic tricuspid (valve) insufficiency (principal); I10 Essential (primary) hypertension; I25.10 Atherosclerotic heart disease of native coronary artery without angina pectoris; K86.1 Other chronic pancreatitis; N18.5 Chronic kidney disease, stage 5; Z99.2 Dependence on renal dialysis | CPT/HCPCS: 93306; 93356 ==

== ENCOUNTER 2020-07-07 12:43 | Outpatient (CLI) | payer MEDICARE, MEDICAID | END 2020-07-07 23:59 | disposition home or self-care (01) | LOC: CFH 12:43 | PROVIDERS: ATTEND Nurse Practitioner Family | DX: Z12.31 Encounter for screening mammogram for malignant neoplasm of breast (principal) | CPT/HCPCS: 77063; 77067 ==

== ENCOUNTER → 2020-07-18 | Outpatient (CLI) | payer MEDICARE, MEDICAID ==
[~2020-07-18] MED LIST changes: -OXYC-302 PO; +OXYC1TAB14 PO; -OXYC5TAB3 PO; +OXYC5TAB98 PO
== END | disposition home or self-care (01) ==
LOC: CFH 12:08
PROVIDERS: ATTEND Internal Medicine Clinical Cardiac Electrophysiology
DX: Z01.810 Encounter for preprocedural cardiovascular examination (principal); R01.1 Cardiac murmur, unspecified
CPT/HCPCS: 78452; 93017; A9502

== ENCOUNTER → 2020-07-20 | Outpatient (CLI) | payer MEDICARE, MEDICAID | END | disposition home or self-care (01) | LOC: CVU 12:37 | PROVIDERS: ATTEND Internal Medicine Clinical Cardiac Electrophysiology | DX: Z01.810 Encounter for preprocedural cardiovascular examination (principal); I08.1 Rheumatic disorders of both mitral and tricuspid valves; I12.9 Hypertensive chronic kidney disease with stage 1 through stage 4 chronic kidney disease, or unspecified chronic kidney disease; N18.5 Chronic kidney disease, stage 5 | CPT/HCPCS: 93306; 93356 ==

== ENCOUNTER 2020-11-10 22:45 | Emergency (ER) | payer MEDICARE, MEDICAID ==
[~2020-11-10] VITALS: Ht 160 cm; Wt 69.4 kg
[~2020-11-10 22:45] MED LIST changes: +CALC667T4 PO; +METH-640 PO; -METH750T2 PO; +PANT40TA6 PO; -VANC1VIA3 PO; +VANC1VIA36 PO; +tylenol pm PO
--- NOTE | 2020-11-10 23:33 | NUR ---
CC OF COVID LIKE SYMPTOMS, DRY COUGH, UNABLE TO SLEEP, N/D, JARVIS, FATIGUE. FEVER/CHILLS SINCE FRIDAY. PT HAS RECEIVED BOTH DOSES OF COVID VACCINE, LAST ONE IN SEPTEMBER. PT IS 100% RA, INSTRUCTED TO GET CHEST XRAY SINCE SHE IS EXPECTING A KIDNEY TRANSPLANT "ANY DAY NOW".
[2020-11-11] MEDS ORDERED: DEXAMETHASONE 4 MG TABLET ONE (00:19)
[2020-11-11] MEDS ORDERED: DEXAMETHASONE 4 MG TABLET PO ONE (00:30)
[2020-11-11 00:36] VITALS: BP 109/76
== END 2020-11-11 00:37 | disposition home or self-care (01) ==
LOC: ED 11-11 00:25
DX: B34.9 Viral infection, unspecified (principal); R07.89 Other chest pain; Z20.822 Contact with and (suspected) exposure to COVID-19; I12.9 Hypertensive chronic kidney disease with stage 1 through stage 4 chronic kidney disease, or unspecified chronic kidney disease; N18.4 Chronic kidney disease, stage 4 (severe); Z99.2 Dependence on renal dialysis; Z87.891 Personal history of nicotine dependence
CPT/HCPCS: 71046; 93005; 99285; U0003; U0005

== ENCOUNTER 2021-01-11 15:21 | Inpatient (IN) | payer MEDICARE, MEDICAID ==
[~2021-01-11] VITALS: Ht 161.3 cm; Wt 68.4 kg
--- NOTE | 2021-01-11 16:29 | NUR ---
FIRST CONTACT: NAUSEA/DIARRHEA X1 WK WORSENING TODAY, "EXPOSED TO COVID BUT WAS VACCINATED", HX C-DIFF/PANCREATITIS. PT TO ROOM WITH STEADY GAIT. ATTACHED TO MONITORS AND POSTIONED TO COMFORT. VSS. ZARATE.
[2021-01-11] MEDS ORDERED: MORPHINE SULFATE 4 MG/ML, 1ML IVPush PRN (16:30)
[2021-01-11] MEDS ORDERED: ONDANSETRON 2MG/ML, 2ML IVPush ONE (16:30)
[2021-01-11] MEDS ORDERED: MORPHINE SULFATE 4 MG/ML, 1ML ONE (16:36)
[2021-01-11] MEDS ORDERED: ONDANSETRON 2MG/ML, 2ML ONE (16:36)
[2021-01-11 16:47] LABS: BASOPHILS % (AUTO) 1 % (0-1); EOSINOPHILS % (AUTO) 3 % (1-7); LYMPHOCYTES % (AUTO) 20 % (22-44); MEAN CORPUSCULAR HEMOGLOBIN 33.1 pg (27.0-34.8); MEAN CORPUSCULAR HGB CONC 34.4 g/dL (32.4-35.8); MEAN PLATELET VOLUME 7.8 fL (7.4-10.4); MONOCYTES % (AUTO) 9 % (2-9); NEUTROPHILS % (AUTO) 68 % (42-75); PLATELET COUNT 174 x10^3/uL (130-400); RED BLOOD COUNT 3.43 x10^6/uL (3.82-5.3); RED CELL DISTRIBUTION WIDTH 15.1 % (9.6-15.2)
[2021-01-11 16:50] LABS: MICROSCOPIC AUTO
[2021-01-11 16:57] LABS: ALBUMIN 3.3 g/dL (3.4-5.0); ANION GAP 10 mmol/L (5-15); CALCIUM 7.8 mg/dL (8.5-10.1); CHLORIDE 99 mmol/L (98-107)
[2021-01-11 17:01] LABS: ALANINE AMINOTRANSFERASE 29 U/L (12-78); ALKALINE PHOSPHATASE 137 U/L (45-117); BILIRUBIN,TOTAL 0.3 mg/dL (0.2-1.0); CREATININE 8.88 mg/dL (0.55-1.02); TOTAL PROTEIN 7.9 g/dL (6.4-8.2)
[2021-01-11] MEDS ORDERED: PROMETHAZINE 25 MG/ML, 1ML ONE (17:34)
--- NOTE | 2021-01-11 18:20 | NUR ---
DR. GASCA TO BEDSIDE. DUDLEY GALEANO. PT RESTING IN BED.
[2021-01-11] MEDS ORDERED: PROMETHAZINE 25 MG/ML, 1ML IM ONE (18:30)
--- NOTE | 2021-01-11 19:09 | NUR ---
REPORT TO FERNANDO WATKINS
[2021-01-11] MEDS ORDERED: DOCUSATE 100 MG CAPSULE PO PRN (19:30)
[2021-01-11] MEDS ORDERED: OXYcodone IR 5MG TABLET PO PRN (19:30)
[2021-01-11] MEDS ORDERED: ENALAPRILAT 1.25 MG/ML, 2ML IVPush PRN (19:30)
[2021-01-11] MEDS ORDERED: ACETAMINOPHEN 325 MG TABLET PO PRN (19:30)
[2021-01-11] MEDS ORDERED: METHOCARBAMOL 500 MG TABLET PO PRN (19:30)
[2021-01-11] MEDS ORDERED: TEMAZEPAM 15 MG CAPSULE PO PRN (19:30)
[2021-01-11] MEDS ORDERED: GUAIFENESIN/DM 200-20MG, 10ML UDC PO PRN (19:30)
[2021-01-11] MEDS: SODIUM CHLORIDE 0.9% 250 ML IV SCH ×2 (19:30→22:00)
--- NOTE | 2021-01-11 19:48 | NUR ---
PT RESTING COMFORTABLY ON GURNEY, WATCHING TV. WARM BLANKETS PROVIDED. AWAITING ADMIT BED.
--- NOTE | 2021-01-11 20:43 | NUR ---
REPORT GIVEN TO EZIO WATKINS. PT RTG TO ROOM 350
[2021-01-11] MEDS: TRAZODONE 150MG TABLET PO SCH (21:00)
[2021-01-11] MEDS: HEPARIN 5,000 UNITS/ML, 1ML SQ SCH (21:30)
[2021-01-11] MEDS: morphine SULFATE 10 MG/ML, 1ML IVPush PRN (22:00)
[2021-01-11 22:06] VITALS: BP 123/81
[2021-01-12] MEDS: SODIUM CHLORIDE 0.9% 250 ML IV SCH (00:30)
[2021-01-12] MEDS: ONDANSETRON 2MG/ML, 2ML IVPush PRN ×4 (00:36→18:09)
[2021-01-12 00:38] VITALS: BP 116/76
[2021-01-12] MEDS: DIPHENHYDRAMINE 50 MG/ML, 1ML IVPush PRN ×3 (01:54→21:41)
[2021-01-12] MEDS: morphine SULFATE 10 MG/ML, 1ML IVPush PRN ×6 (01:54→21:42)
[2021-01-12] MEDS: HEPARIN 5,000 UNITS/ML, 1ML SQ SCH ×3 (05:30→21:41)
[2021-01-12 05:47] LABS: BASOPHILS % (AUTO) 1 % (0-1); EOSINOPHILS % (AUTO) 3 % (1-7); LYMPHOCYTES % (AUTO) 28 % (22-44); MEAN CORPUSCULAR HGB CONC 34.3 g/dL (32.4-35.8); MEAN PLATELET VOLUME 7.5 fL (7.4-10.4); MONOCYTES % (AUTO) 10 % (2-9); NEUTROPHILS % (AUTO) 59 % (42-75); PLATELET COUNT 128 x10^3/uL (130-400); RED BLOOD COUNT 3.24 x10^6/uL (3.82-5.3); RED CELL DISTRIBUTION WIDTH 14.9 % (9.6-15.2)
[2021-01-12 05:55] LABS: ANION GAP 8 mmol/L (5-15); CALCIUM 7.5 mg/dL (8.5-10.1); CHLORIDE 103 mmol/L (98-107); CREATININE 9.05 mg/dL (0.55-1.02)
[2021-01-12 06:56] VITALS: BP 119/78
[2021-01-12] MEDS: PANTOPRAZOLE 40MG TABLET PO SCH (07:34)
[2021-01-12] MEDS: SEVELAMER CARBONATE 800MG TAB PO SCH ×3 (07:34→15:56)
[2021-01-12 12:07] VITALS: BP 125/68
[2021-01-12] MEDS: PROMETHAZINE 25 MG/ML, 1ML IM PRN ×2 (15:11→21:41)
[2021-01-12 19:34] VITALS: BP 127/81
[2021-01-12] MEDS: TRAZODONE 150MG TABLET PO SCH (23:10)
[2021-01-13 01:16] VITALS: BP 122/77
[2021-01-13 05:28] LABS: ALBUMIN 3.5 g/dL (3.4-5.0); CHLORIDE 96 mmol/L (98-107)
[2021-01-13 05:30] LABS: ANION GAP 8 mmol/L (5-15); CALCIUM 8.6 mg/dL (8.5-10.1)
[2021-01-13] MEDS: HEPARIN 5,000 UNITS/ML, 1ML SQ SCH ×3 (05:39→22:28)
[2021-01-13] MEDS: morphine SULFATE 10 MG/ML, 1ML IVPush PRN ×3 (05:40→17:36)
[2021-01-13] MEDS: PROMETHAZINE 25 MG/ML, 1ML IM PRN ×3 (06:30→19:27)
[2021-01-13 07:08] VITALS: BP 124/73
[2021-01-13] MEDS: SEVELAMER CARBONATE 800MG TAB PO SCH ×3 (07:48→16:53)
[2021-01-13] MEDS: PANTOPRAZOLE 40MG TABLET PO SCH (07:48)
[2021-01-13] MEDS: ONDANSETRON 2MG/ML, 2ML IVPush PRN ×2 (10:28→17:35)
[2021-01-13] MEDS: DIPHENHYDRAMINE 50 MG/ML, 1ML IVPush PRN (11:33)
[2021-01-13 12:00] VITALS: BP 113/76
[2021-01-13] MEDS: CALCIUM ACETATE 667 MG CAPSULE PO SCH ×2 (19:00→21:00)
[2021-01-13 20:31] VITALS: BP 122/81
[2021-01-13] MEDS: TRAZODONE 150MG TABLET PO SCH (23:30)
[2021-01-14] MEDS: morphine SULFATE 10 MG/ML, 1ML IVPush PRN ×5 (01:08→22:41)
[2021-01-14 02:15] VITALS: BP 119/75
[2021-01-14 05:18] LABS: CHLORIDE 97 mmol/L (98-107)
[2021-01-14 05:24] LABS: ALANINE AMINOTRANSFERASE 23 U/L (12-78); ALBUMIN 3.2 g/dL (3.4-5.0); ALKALINE PHOSPHATASE 105 U/L (45-117); ANION GAP 7 mmol/L (5-15); BILIRUBIN,TOTAL 0.3 mg/dL (0.2-1.0); CALCIUM 7.9 mg/dL (8.5-10.1); TOTAL PROTEIN 7.4 g/dL (6.4-8.2)
[2021-01-14 05:26] LABS: BASOPHILS % (AUTO) 1 % (0-1); EOSINOPHILS % (AUTO) 2 % (1-7); LYMPHOCYTES % (AUTO) 20 % (22-44); MEAN CORPUSCULAR HEMOGLOBIN 33.9 pg (27.0-34.8); MEAN CORPUSCULAR HGB CONC 34.4 g/dL (32.4-35.8); MONOCYTES % (AUTO) 10 % (2-9); NEUTROPHILS % (AUTO) 67 % (42-75); PLATELET COUNT 149 x10^3/uL (130-400); RED BLOOD COUNT 3.49 x10^6/uL (3.82-5.3); RED CELL DISTRIBUTION WIDTH 14.5 % (9.6-15.2)
[2021-01-14] MEDS: LEVOTHYROXINE 50 MCG TABLET PO SCH (05:35)
[2021-01-14] MEDS: HEPARIN 5,000 UNITS/ML, 1ML SQ SCH ×3 (05:35→21:59)
[2021-01-14] MEDS: CALCIUM ACETATE 667 MG CAPSULE PO SCH ×4 (05:37→21:58)
[2021-01-14 07:14] VITALS: BP 123/76
[2021-01-14] MEDS: PROMETHAZINE 25 MG/ML, 1ML IM PRN ×3 (07:39→21:59)
[2021-01-14] MEDS: SEVELAMER CARBONATE 800MG TAB PO SCH ×3 (08:10→16:36)
[2021-01-14] MEDS ORDERED: LORazepam 2 MG/ML, 1ML IVPush ONE (10:00)
[2021-01-14] MEDS: PANTOPRAZOLE 40MG TABLET PO SCH (12:12)
[2021-01-14] MEDS: DIPHENHYDRAMINE 50 MG/ML, 1ML IVPush PRN ×2 (12:55→22:40)
[2021-01-14 15:29] VITALS: BP 138/78
[2021-01-14 18:54] VITALS: BP 125/78
[2021-01-15] MEDS: TRAZODONE 150MG TABLET PO SCH ×2 (00:42→21:00)
[2021-01-15 01:21] VITALS: BP 117/73
[2021-01-15] MEDS: CALCIUM ACETATE 667 MG CAPSULE PO SCH ×4 (05:16→21:00)
[2021-01-15] MEDS: LEVOTHYROXINE 50 MCG TABLET PO SCH (05:16)
[2021-01-15] MEDS: HEPARIN 5,000 UNITS/ML, 1ML SQ SCH ×3 (05:16→22:37)
[2021-01-15 07:05] VITALS: BP 118/76
[2021-01-15] MEDS: SEVELAMER CARBONATE 800MG TAB PO SCH ×3 (07:35→17:00)
[2021-01-15] MEDS: PROMETHAZINE 25 MG/ML, 1ML IM PRN ×2 (08:09→22:36)
[2021-01-15] MEDS: morphine SULFATE 10 MG/ML, 1ML IVPush PRN ×3 (08:20→22:38)
[2021-01-15] MEDS: DIPHENHYDRAMINE 50 MG/ML, 1ML IVPush PRN ×2 (08:21→13:02)
[2021-01-15] MEDS: PANTOPRAZOLE 40MG TABLET PO SCH (08:34)
[2021-01-15 08:56] LABS: ALBUMIN 3.4 g/dL (3.4-5.0); ANION GAP 9 mmol/L (5-15); CALCIUM 8.9 mg/dL (8.5-10.1); CHLORIDE 96 mmol/L (98-107)
[2021-01-15 09:00] LABS: ALANINE AMINOTRANSFERASE 24 U/L (12-78); ALKALINE PHOSPHATASE 83 U/L (45-117); BILIRUBIN,TOTAL 0.5 mg/dL (0.2-1.0); TOTAL PROTEIN 7.9 g/dL (6.4-8.2)
[2021-01-15 13:08] VITALS: BP 130/90
[2021-01-15] MEDS ORDERED: LORazepam 2 MG/ML, 1ML IVPush ONE (13:30)
[2021-01-15 17:49] LABS: BASOPHILS % (AUTO) 1 % (0-1); EOSINOPHILS % (AUTO) 2 % (1-7); LYMPHOCYTES % (AUTO) 21 % (22-44); MEAN CORPUSCULAR HEMOGLOBIN 31.8 pg (27.0-34.8); MEAN CORPUSCULAR HGB CONC 34.1 g/dL (32.4-35.8); MEAN PLATELET VOLUME 7.6 fL (7.4-10.4); MONOCYTES % (AUTO) 12 % (2-9); NEUTROPHILS % (AUTO) 64 % (42-75); PLATELET COUNT 137 x10^3/uL (130-400); RED BLOOD COUNT 4.04 x10^6/uL (3.82-5.3); RED CELL DISTRIBUTION WIDTH 14.4 % (9.6-15.2)
[2021-01-15 17:58] LABS: ANION GAP 5 mmol/L (5-15); CALCIUM 9.1 mg/dL (8.5-10.1); CHLORIDE 97 mmol/L (98-107); CREATININE 7.59 mg/dL (0.55-1.02)
[2021-01-15 18:02] LABS: TROPONIN I < 0.015 ng/mL (0.000-0.045)
[2021-01-15 18:08] LABS: INTERNATIONAL NORMALIZED RATIO 0.96 (0.93-1.1); PROTHROMBIN TIME 10.3 Seconds (9.6-11.5)
[2021-01-15 22:46] VITALS: BP 119/79
[2021-01-16 02:57] VITALS: BP 124/78
[2021-01-16] MEDS: HEPARIN 5,000 UNITS/ML, 1ML SQ SCH ×2 (05:30→15:01)
[2021-01-16] MEDS: LEVOTHYROXINE 50 MCG TABLET PO SCH (06:00)
[2021-01-16] MEDS: CALCIUM ACETATE 667 MG CAPSULE PO SCH ×2 (06:00→10:28)
[2021-01-16] MEDS: PROMETHAZINE 25 MG/ML, 1ML IM PRN (06:58)
[2021-01-16] MEDS: morphine SULFATE 10 MG/ML, 1ML IVPush PRN ×2 (06:58→12:13)
[2021-01-16 06:59] VITALS: BP 122/75
[2021-01-16] MEDS: SEVELAMER CARBONATE 800MG TAB PO SCH ×4 (07:36→12:13)
[2021-01-16] MEDS: PANTOPRAZOLE 40MG TABLET PO SCH (07:37)
[2021-01-16 08:20] VITALS: BP 112/69
[2021-01-16] MEDS: DIPHENHYDRAMINE 50 MG/ML, 1ML IVPush PRN (12:12)
[2021-01-16 13:44] VITALS: BP 107/65
[2021-01-16] MEDS ORDERED: HYDROCORTISONE 100 MG INJ. IVPush ONE (15:00)
[2021-01-16] MEDS ORDERED: SUCRALFATE 1 GM/10 ML UDC PO SCH (16:30)
[2021-01-16] MEDS ORDERED: MAALOX/HYOSCYAMINE/LIDOCAINE 45 ML BTL PO ONE (16:30)
[2021-01-16] MEDS ORDERED: SUCR1TAB33 PO (16:35)
[2021-01-16] MEDS ORDERED: PANT40TA6 PO (16:35)
[2021-01-16] MEDS ORDERED: PANTOPRAZOLE 40MG TABLET PO SCH (21:00)
== END 2021-01-16 17:25 | disposition home or self-care (01) | DRG 438 ==
LOC: ED 15:51 → EDIP 19:50 → 3N 21:36 → 4WST 01-12 18:26
PROVIDERS: ADMIT Internal Medicine; ATTEND Hospitalist
PROC: 5A1D70Z Performance of Urinary Filtration, Intermittent, Less than 6 Hours Per Day (ICD-10-PCS; principal; 2021-01-12)
DX: K85.90 Acute pancreatitis without necrosis or infection, unspecified (principal); N18.6 End stage renal disease; E87.1 Hypo-osmolality and hyponatremia; I12.0 Hypertensive chronic kidney disease with stage 5 chronic kidney disease or end stage renal disease; Z99.2 Dependence on renal dialysis; D63.1 Anemia in chronic kidney disease; D69.6 Thrombocytopenia, unspecified; E03.9 Hypothyroidism, unspecified; F12.90 Cannabis use, unspecified, uncomplicated; K86.1 Other chronic pancreatitis; M89.8X9 Other specified disorders of bone, unspecified site; Z82.49 Family history of ischemic heart disease and other diseases of the circulatory system; Z83.3 Family history of diabetes mellitus; Z87.891 Personal history of nicotine dependence; Z90.710 Acquired absence of both cervix and uterus; Z91.041 Radiographic dye allergy status; Z88.0 Allergy status to penicillin; Z91.013 Allergy to seafood; Z91.018 Allergy to other foods
CPT/HCPCS: 36415; 36600; 70450; 74178; 76700; 80048; 80053; 80069; 81001; 82306; 82803; 82962; 83690; 83735; 83970; 84484; 85025; 85610; 85730; 86705; 86706; 87340; 90935; 95819; 96361; 96372; 96374; 96375; G0378; J1644; J2405; J2550; J1200; J1720; J2060; J2270; J7050